=== PATIENT | male | born 1980 | race Caucasian/White ===

== ENCOUNTER 2016-09-29 00:19 | Inpatient (IN) | payer OTHER ==
[~2016-09-29] VITALS: Ht 180.3 cm; Wt 68.0 kg
[2016-09-29] VITALS (10 sets, daily range): BP systolic 96–115; BP diastolic 52–65; PULSE 98–115; RESP 16–24; TEMP 95–99.1; O2SAT 91–100
[~2016-09-29 00:19] MED LIST: DIPHTH/TETANUS/ACEL PERTUSSIS (BOOSTER) 0.5 ML VIAL/PFS IM ONE; PROPOFOL 1000 MG/100 ML INJ 100 ML ONE; ceFAZolin 2 GM PREMIX 50 ML ONE
[2016-09-29] MEDS ORDERED: ceFAZolin 2 GM PREMIX 50 ML IV STA (00:30)
[2016-09-29] MEDS ORDERED: ONDANSETRON HCL 4 MG/2 ML VIAL IV ONE (00:30)
[2016-09-29] MEDS ORDERED: DIPHTH/TETANUS/ACEL PERTUSSIS (BOOSTER) 0.5 ML VIAL/PFS IM ONE (00:39)
[2016-09-29] MEDS ORDERED: SODIUM CHLORIDE FLUSH PRN IV FLUSH (00:45)
[2016-09-29 00:52] LABS: AUTOMATED NEUTROPHIL # 2.8 TH/MM3 (1.8-7.7); BASOPHIL # 0.2 TH/MM3 (0-0.2); BASOPHIL % 2.7 % (0.0-2.0); EOSINOPHIL # 0.1 TH/MM3 (0-0.4); EOSINOPHIL % 0.9 % (0.0-4.0); HEMATOCRIT 33.8 % (39.0-51.0); HEMO FLAGS DIFF FINAL; LYMPH % 54.4 % (9.0-44.0); LYMPHOCYTE # 3.7 TH/MM3 (1.0-4.8); MEAN CORPUSCULAR HEMOGLOBIN 30.6 PG (27.0-34.0); MEAN CORPUSCULAR HGB CONC 32.2 % (32.0-36.0); PLATELET COUNT 156 TH/MM3 (150-450); RED BLOOD COUNT 3.56 MIL/MM3 (4.50-5.90); RED CELL DISTRIBUTION WIDTH 13.8 % (11.6-17.2); WHITE BLOOD COUNT 6.8 TH/MM3 (4.0-11.0)
[2016-09-29 00:53] LABS: I-STAT POTASSIUM 3.7 MMOL/L (3.5-4.9)
[2016-09-29 01:04] LABS: APTT (PATIENT) 51.8 SEC (24.3-30.1); INTERNATIONAL NORMALIZED RATIO 1.3 RATIO; PROTHROMBIN TIME - PATIENT 14.7 SEC (9.8-11.6)
[2016-09-29] MEDS ORDERED: ceFAZolin INJ 1,000 MG VIAL IV ONE (01:07)
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
--- NOTE | 2016-09-29 01:46 | RADRPT ---
EXAM DATE/TIME: 09/29/2016 00:13 [facility] COMPARISON: CHEST SINGLE AP, September 29, 2016, 0:13. INDICATIONS : Left sided chest tube placement. MEDICAL HISTORY : None. SURGICAL HISTORY : None. ENCOUNTER: Subsequent ACUITY: 1 day PAIN SCORE: Non-responsive. LOCATION: Left chest FINDINGS: A single view of the chest demonstrates the lungs to be symmetrically aerated without evidence of mas s, infiltrate or effusion. Left-sided chest tube placement. No pneumothorax. The cardiomediastinal co ntours are unremarkable. Osseous structures are intact. CONCLUSION: Left-sided chest tube without pneumothorax. Heriberto Diez MD on September 29, 2016 at 1:43 Board Certified Radiologist. This report was verified electronically.
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
[2016-09-29 02:13] LABS: BLOOD GAS BASE EXCESS -14.9 mmol/L (-2-2); BLOOD GAS CARBOXYHEMOGLOBIN 2.3 % (0-4); BLOOD GAS HCO3 14 mmol/L (22-26); BLOOD GAS METHEMOGLOBIN 1.2 % (0-2); BLOOD GAS O2 HGB SATURATION 96 % (90-100); BLOOD GAS PCO2 58 mmHg (38-42); BLOOD GAS PO2 389 mmHg (61-120); BLOOD GAS TOTAL HGB 8.9 G/DL (12.0-16.0); TEMP CORR TO 98.6
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
[2016-09-29 02:17] LABS: CRITICAL VALUE YES; FIO2 90 %; OXYGEN DEVICE OR
[2016-09-29 02:18] LABS: STAT YES; VENT SETTINGS OR
[2016-09-29] MEDS ORDERED: MISCELLANEOUS NURSING INFORMATION XX SCH ×2 (02:30→07:30)
[2016-09-29] MEDS ORDERED: CHLORHEXIDINE GLUCONATE 2 % 1 PACK (2 CLOTHS) TOP PRN (02:30)
[2016-09-29] MEDS ORDERED: ETOMIDATE 20 MG/10 ML VIAL ONE (02:33)
[2016-09-29] MEDS ORDERED: fentaNYL DRIP 250 ML IV SCH (02:45)
[2016-09-29] MEDS ORDERED: PROPOFOL 1000 MG/100 ML INJ 100 ML IV SCH (02:45)
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
--- NOTE | 2016-09-29 03:08 | PD.OP ---
Operative Report Blunt chest trauma, pneumothorax left Postoperative Diagnosis: Same Procedure: Chest tube thoracostomy left Surgeon: Veronica Bowers Turning And Beading Machine Operator(s): none Operation and Findings: A 36-year-old male with traumatic shock left blunt chest trauma suspicious for left hemopneumothorax, proceeded with chest tube thoracostomy. Technique Patient's left chest sterilely prepped and draped using the usual technique. Midaxillary line 5 ICR incision was performed, dissected to the superior aspect of the rib.Pleural space entered and a 32 Mongolian chest tube inserted-secured to skin with 0 silk. Chest x-ray shows good position Veronica Bowers MD Sep 29, 2016 03:08
[2016-09-29] MEDS ORDERED: IOHEXOL 350 MG/ML 10 ML VIAL (for RAD DIAG) IV ONE (03:31)
[2016-09-29] MEDS: CHLORHEXIDINE GLUCONATE 2 % 1 PACK (2 CLOTHS) TOP SCH (04:00)
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
[2016-09-29] MEDS ORDERED: TRANEXAMIC ACID INJ 1,000 MG/10 ML AMP ONE ×2 (04:09)
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
--- NOTE | 2016-09-29 04:10 | PD.OP ---
Operative Report Traumatic shock,r/o intra-abdominal bleeding, rule out aortic injury Postoperative Diagnosis: Traumatic shock, stomach injury, liver injury,hematoma of the small bowel mesentery Procedure: Exploratory laparotomy with damage control, open abdomen wound VAC, repair of liver injury, stomach injury repair Anesthesia: Gen. Surgeon: Veronica Bowers Pipe Turner(s): Film Printer OR Operation and Findings: This 36-year-old male presented with traumatic shock. To the OR on emergent basis for hypotension for exploratory laparotomy -if remain unstable for thoracotomy,repair of aortic injury. Technique Patient was brought into the operating room and identified as the patient. After general anesthesia patient's abdomen was sterilely prepped and draped using the usual technique. Procedure started was midline incision-abdomen was entered. Upon entering of the abdomen large spillage of stomach content was seen. There is a large injury of the stomach at the antrum 6 cm through and through. This was controlled with several Babcocks. Further exploration shows left liver multiple superficial injuries and and a deeper injury the size of 6 cm with active bleeding. The superficial injuries were controlled with high level cautery. The deeper injury was controlled with Surgicel packing and chromic liver sutures. Here 2 x packing with Nu-Knit applied. There is a hematoma at the root of the transverse colon mesentery. Visceral reflection from the left shows no SMA or SMV bleeding -also aorta is intact. Spleen shows no injury. Right colon, left colon,transverse colon no injury as well. Small bowel was run from ligament of Treitz to the ileocecal wall. There is mesenteric hematoma not expanding and small bowel is intact. Total of 4 packs were left one left upper quadrant 3 in the right upper quadrant. Upon entering of the lesser sac there is wall deserosalization of about 7 cm of posterior stomach wall. This was closed with multiple 3 GI silk. Pancreas appears swollen but no obvious injury. The stomach injury was closed with the TA stapler.Abdomen was irrigated with normal saline. Wound VAC dressing was applied. Patient was resuscitated with anesthesia according to massive transfusion protocol. Cardiothoracic surgeon has been consulted for a widened mediastinum. He assessed the patient-and it was performed by the anesthesiologist, CT output about 600cc. Postoperatively patient will be brought to the CAT scan. Resuscitation will be continued in the ICU. EBL 800 cc Veronica Bowers MD Sep 29, 2016 04:10
[2016-09-29 04:21] LABS: AUTOMATED NEUTROPHIL # 8.8 TH/MM3 (1.8-7.7); BASOPHIL % 0.2 % (0.0-2.0); EOSINOPHIL # 0.1 TH/MM3 (0-0.4); EOSINOPHIL % 0.7 % (0.0-4.0); LYMPH % 15.2 % (9.0-44.0); LYMPHOCYTE # 1.6 TH/MM3 (1.0-4.8); MEAN CELL VOLUME 86.9 FL (80.0-100.0); MEAN CORPUSCULAR HEMOGLOBIN 28.6 PG (27.0-34.0); MEAN CORPUSCULAR HGB CONC 32.9 % (32.0-36.0); MONO % 1.8 % (0.0-8.0); NEUT % 82.1 % (16.0-70.0); PLATELET COUNT 93 TH/MM3 (150-450); RED BLOOD COUNT 4.49 MIL/MM3 (4.50-5.90); RED CELL DISTRIBUTION WIDTH 14.3 % (11.6-17.2); WHITE BLOOD COUNT 10.7 TH/MM3 (4.0-11.0)
[2016-09-29 04:23] LABS: HEMO FLAGS AUTO DIFF
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
[2016-09-29 04:31] LABS: INTERNATIONAL NORMALIZED RATIO 1.4 RATIO; PROTHROMBIN TIME - PATIENT 15.9 SEC (9.8-11.6)
[2016-09-29 04:40] LABS: BLOOD GAS BASE EXCESS -5.6 mmol/L (-2-2); BLOOD GAS CARBOXYHEMOGLOBIN 1.1 % (0-4); BLOOD GAS HCO3 23 mmol/L (22-26); BLOOD GAS METHEMOGLOBIN 0.5 % (0-2); BLOOD GAS O2 HGB SATURATION 95 % (90-100); BLOOD GAS OXYGEN CONTENT 15.6 Vol % (12.0-20.0); BLOOD GAS PCO2 76 mmHg (38-42); BLOOD GAS PO2 97 mmHG (61-120); BLOOD GAS TOTAL HGB 11.6 G/DL (12.0-16.0); TEMP CORR TO 98.6
[2016-09-29 04:41] LABS: FIO2 100 %; OXYGEN DEVICE VENTILATOR; STAT YES; VENT SETTINGS 12/500/6PEEP
[2016-09-29 04:52] LABS: BACTERIA, URINE RARE /hpf; BLOOD, URINE LARGE (NEG); GLUCOSE,URINE 150 mg/dL (NEG); HYALINE CAST, URINE 2 /lpf (RARE); KETONE, URINE NEG (NEG); MUCUS URINE FEW /lpf (OCC); NITRITE,URINE NEG (NEG); RENAL EPITHELIAL CELLS <1 /hpf; SQUAMOUS EPITHELIAL CELL URINE 1 /hpf (0-5); URINE COLOR YELLOW (YELLW/STRAW)
[2016-09-29 04:53] LABS: COMMENT (UR) CULTURE INDICATED; CULTURE IF INDICATED CULTURE INDICATED
[2016-09-29 04:56] LABS: BANDS 16 % (0-6); BASOPHILS 1 % (0-2); EOSINOPHILS 1 % (0-4); METAMYELOCYTES 6 % (0-1); MYELOCYTES 1 % (0-0); NEUTROPHIL # MANUAL DIFF 8.6 TH/MM3 (1.8-7.7); PLATELET ESTIMATE SMEAR LOW (NORMAL); PLATELET MORPHOLOGY NORMAL (NORMAL); POLYS (SEG NEUTROPHILS) 57 % (16-70); SCAN/DIFF FINAL DIFF MANUAL; WBC DIFF SAMPLE 100
[2016-09-29 04:57] LABS: BURR CELLS 1+ (NORMAL)
[2016-09-29 04:57] LABS: AMPHETAMINE, URINE NEG (NEG); BARBITURATES, URINE NEG (NEG); COCAINE, URINE NEG (NEG)
--- NOTE | 2016-09-29 05:08 | HHI.PR ---
Subjective Remarks Traumatic shock,multitrauma,aortic injury-patient intubated ongoing resuscitation-needs stenting as medical necessity-cannot sign consent due to clinical condition Objective Vital Signs Date Time Temp Pulse Resp B/P Pulse Ox O2 Delivery O2 Flow Rate FiO2 09/29/16 04:04 100 100 Result Diagram: 09/29/16 0359 Assessment and Plan Assessment and Plan Traumatic shock blunt chest trauma with widened mediastinum-highly suspicious for blunt aortic injury hypotension,ST Orotracheally intubated, MTP started, negative fast exam but highly suspicious for intra-abdominal bleeding immediately brought to the OR for exploration of the abdomen Chest tube output about 300 cc Discussed with the thoracic surgeon hvac controls technician- Veronica Bowers MD Sep 29, 2016 05:08
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
[2016-09-29 06:01] LABS: BICARBONATE 27.9 MEQ/L (21.0-32.0); POTASSIUM 3.2 MEQ/L (3.5-5.1)
[2016-09-29 06:32] LABS: CALCIUM-PROTEIN CORRECTED 7.9 MG/DL (8.5-10.1)
[2016-09-29] MEDS ORDERED: PROTAMINE SULFATE 50 MG/5 ML VIAL ONE (07:00)
[2016-09-29] MEDS ORDERED: MIDAZOLAM HCL 5 MG/5 ML VIAL ONE (07:14)
[2016-09-29] MEDS ORDERED: MAGNESIUM OXIDE 400 MG TAB PO PRN (07:30)
[2016-09-29] MEDS ORDERED: POTASSIUM PHOSPHATE INJ 30 MMOL in SODIUM CHLOR 0.9% 250 ML INJ 250 ML IV PRN (07:30)
[2016-09-29] MEDS ORDERED: POTASSIUM CHLORIDE 25 MEQ EFFERVESCENT TAB PO PRN (07:30)
[2016-09-29] MEDS ORDERED: SODIUM CHLORIDE 0.9% FLUSH 5 ML FLUSH IV FLUSH PRN (07:30)
[2016-09-29] MEDS ORDERED: POTASSIUM PHOSPHATE MONOBASIC 500 MG TAB PO/TUBE PRN (07:30)
[2016-09-29] MEDS ORDERED: ONDANSETRON HCL 4 MG/2 ML VIAL IV PRN (07:30)
[2016-09-29] MEDS ORDERED: POTASSIUM PHOSPHATE MONOBASIC 500 MG TAB PO PRN (07:30)
[2016-09-29] MEDS ORDERED: SODIUM PHOSPHATE INJ 30 MMOL in SODIUM CHLOR 0.9% 250 ML INJ 240 ML IV PRN (07:30)
[2016-09-29] MEDS ORDERED: MAGNESIUM SULFATE INJ 2 GM in SODIUM CHLORIDE 0.9% INJ 96 ML IV PRN (07:30)
[2016-09-29] MEDS ORDERED: MAGNESIUM SULFATE INJ 4 GM in SODIUM CHLORIDE 0.9% INJ 92 ML IV PRN (07:30)
[2016-09-29] MEDS ORDERED: POTASSIUM CHLOR 20 MEQ PREMIX 100 ML IV PRN ×2 (07:30)
[2016-09-29] MEDS ORDERED: MIDAZOLAM HCL 2 MG/2 ML VIAL ONE (07:44)
[2016-09-29 07:45] LABS: BLOOD GAS BASE EXCESS 1.6 mmol/L (-2-2); BLOOD GAS CARBOXYHEMOGLOBIN 0.9 % (0-4); BLOOD GAS HCO3 28 mmol/L (22-26); BLOOD GAS METHEMOGLOBIN 0.7 % (0-2); BLOOD GAS O2 HGB SATURATION 98 % (90-100); BLOOD GAS OXYGEN CONTENT 12.6 Vol % (12.0-20.0); BLOOD GAS PCO2 65 mmHg (38-42); BLOOD GAS PO2 221 mmHg (61-120); BLOOD GAS TOTAL HGB 8.8 G/DL (12.0-16.0); TEMP CORR TO 98.6
[2016-09-29] MEDS ORDERED: VASOPRESSIN INJ 20 UNITS/ML VIAL ONE (07:45)
[2016-09-29] MEDS ORDERED: fentaNYL CITRATE 250 MCG/5 ML AMP ONE (07:45)
[2016-09-29 07:46] LABS: CRITICAL VALUE YES; FIO2 100 %; OXYGEN DEVICE VENT
[2016-09-29 07:47] LABS: DRAW SITE ALINE; STAT NO
[2016-09-29] MEDS ORDERED: IODIXANOL 320 MG/ML 50 ML VIAL (for RAD SPEC) I-ARTERIAL ONE (07:49)
--- NOTE | 2016-09-29 07:58 | PD.RAD ---
Post Procedure Progress Note Pre Procedure Diagnosis: (1) Traumatic thoracic aortic rupture (2) Hemopneumothorax on left (3) Traumatic hemorrhagic shock Post Procedure Diagnosis: (1) Traumatic thoracic aortic rupture (2) Hemopneumothorax on left (3) Traumatic hemorrhagic shock Procedure Date: Sep 29, 2016 Supervising Radiologist: Jax Chase Proceduralist/Assist: Cielo Finch, RT(R)(CV), Karen Swann RT(R)() Anesthesia: General, Local Plan of Activity Patient to Unit: Critical Care Patient Condition: Critical See PACS Report for procedural detail/treatment Vascular-Arterial Procedure Procedure 1 Procedure Site: Thoracic Procedure(s): Stent Placement Access Access Site(s): Right Femoral Artery, Left Femoral Artery Closure Site(s): Right vascular closure device Sheath(s) Remaining: Left Femoral Artery Findings: Contained rupture of proximal descending thoracic aorta with pseudoaneurysm formation. Patent great vessels. Treament Area: Thoracic aortic rupture repaired with Medtronic [place] stent graft. Graft place from Lt Subclavian A to mid descending thoracic aorta. Rupture completely excluded with good flow established. Pt stable post procedure. Additional Detail: Lt femoral sheath left in place as arterial line for management. Jax Chase MD Sep 29, 2016 07:58
[2016-09-29] MEDS ORDERED: CHLORHEXIDINE 0.12% (ORAL KIT) 15 ML CUP MT SCH (08:00)
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
[2016-09-29] MEDS ORDERED: NOREPINEPHRINE-DEXTROSE DRIP 250 ML IV ONE (08:34)
[2016-09-29] MEDS ORDERED: SODIUM CHLORIDE 0.9% FLUSH 5 ML FLUSH IV FLUSH SCH (09:00)
[2016-09-29] MEDS: SODIUM CHLORIDE 0.9% FLUSH 10 ML FLUSH IV FLUSH SCH ×2 (09:00→21:00)
[2016-09-29] MEDS ORDERED: SODIUM CHLORIDE FLUSH BID IV FLUSH SCH (09:00)
[2016-09-29] MEDS: DOCUSATE SODIUM 100 MG CAP PO SCH ×2 (09:00→19:56)
[2016-09-29] MEDS: PANTOPRAZOLE SODIUM 40 MG VIAL IV SCH (09:00)
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
[2016-09-29] MEDS: RESP: ALBUTEROL 2.5 MG/IPRATROPIUM 0.5 MG NEB (SCH) INH ×3 (09:43→21:18)
[2016-09-29] MEDS ORDERED: HEPARIN-NS/PF INJ 500 ML IART SCH (10:00)
[2016-09-29] MEDS ORDERED: HEPARIN INJ 1,000 UNITS in SODIUM CHLORID 0.9% 500 ML INJ 500 ML IV SCH (10:01)
[2016-09-29] MEDS ORDERED: PHENYLEPH/NS 1000 MCG/10 ML SYR IV ONE ×2 (10:36→12:24)
[2016-09-29] MEDS ORDERED: SODIUM BICARBONATE 8.4% INJ 50 MEQ/50 ML SYR IV ONE ×2 (10:36→12:24)
[2016-09-29] MEDS ORDERED: LACTATED RINGER'S 1,000 ML BAG IV ONE (10:36)
[2016-09-29] MEDS ORDERED: SODIUM CHLOR 0.9% 1000 ML BAG IV ONE (10:36)
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
[2016-09-29 11:32] LABS: BLOOD GAS BASE EXCESS 3.6 mmol/L (-2-2); BLOOD GAS HCO3 29 mmol/L (22-26); BLOOD GAS METHEMOGLOBIN 0.8 % (0-2); BLOOD GAS O2 HGB SATURATION 98 % (90-100); BLOOD GAS OXYGEN CONTENT 16.5 Vol % (12.0-20.0); BLOOD GAS PCO2 56 mmHg (38-42); BLOOD GAS PO2 187 mmHg (61-120); BLOOD GAS TOTAL HGB 11.8 G/DL (12.0-16.0); TEMP CORR TO 98.6
[2016-09-29 11:33] LABS: CRITICAL VALUE YES; OXYGEN DEVICE VENT
[2016-09-29 11:34] LABS: DRAW SITE ALINE; FIO2 100 %; STAT NO; VENT SETTINGS PRVC/18/550/10/.9IT
[2016-09-29] MEDS: PIPERACIL-TAZO 3.375 GM PREMIX 50 ML IV SCH ×2 (11:56→18:00)
[2016-09-29] MEDS: PROPOFOL 1000 MG/100 ML INJ 100 ML IV SCH ×3 (11:57→22:30)
[2016-09-29] MEDS ORDERED: CALCIUM CHLORIDE 10% SOLN 1 GRAM/10 ML SYR IV ONE (12:24)
[2016-09-29] MEDS ORDERED: NORMOSOL R IV ONE (12:24)
[2016-09-29] MEDS: SODIUM CHLOR 0.9% 1000 ML INJ 1,000 ML IV SCH ×2 (12:29→22:29)
[2016-09-29] MEDS ORDERED: LIDOCAINE 1%/EPINEPHrine 1:100,000 SOLN 20 ML VIAL INFIL ONE (15:00)
[2016-09-29] MEDS ORDERED: LIDOCAINE HCL 1% 50 ML VIAL ONE (15:00)
[2016-09-29 15:35] LABS: HEMATOCRIT 35.1 % (39.0-51.0); MEAN CELL VOLUME 83.9 FL (80.0-100.0); MEAN CORPUSCULAR HEMOGLOBIN 29.5 PG (27.0-34.0); MEAN CORPUSCULAR HGB CONC 35.1 % (32.0-36.0); PLATELET COUNT 136 TH/MM3 (150-450); RED BLOOD COUNT 4.19 MIL/MM3 (4.50-5.90); RED CELL DISTRIBUTION WIDTH 15.1 % (11.6-17.2); REVIEW FLAG FINAL; WHITE BLOOD COUNT 6.9 TH/MM3 (4.0-11.0)
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
--- NOTE | 2016-09-29 16:12 | PD.PROCEDR ---
Procedure Note Procedure The patient suffered a laceration to the back of his scalp that I was asked to repair. It is 9 cm in length vertically and the middle of the laceration extends horizontally to the right for 5 cm. Upon removal of his head dressing, it was noted that the laceration was all ready stapled, however the silvestre were most of the way out, and not approximating the wound. 7 silvestre were removed. After evaluating the area, the wound was copiously irrigated with normal saline. The area of the laceration was prepped with Betadine and sterilely draped. The laceration was infiltrated with 1% Lidocaine with Epinephrine. The wound was explored for foreign body, tendon injury, or neurovascular injury. The wound was then cleansed and irrigated a second time. Trying to maintain a sterile field and using a sterile staple gun, 10 silvestre total were placed to approximate the wound edges, both horizontally and vertically. The patient tolerated the procedure well and no complications occurred. A sterile 4x4 dressing was applied and the head was wrapped with Madai. Recommendation: Daily wound checks and staple removal in 7-10 days. LACERATION LOCATION: Back of his scalp. LENGTH: 9 cm vertical, and 5 cm horizontal NUMBER OF SILVESTRE: 10 silvestre total. procedure performed by DINING HOST -under my supervision-agree with above note Christine Lott Sep 29, 2016 16:12 Veronica Bowers MD Oct 03, 2016 11:45
[2016-09-29 17:01] LABS: BICARBONATE 30.4 MEQ/L (21.0-32.0); CALCIUM-PROTEIN CORRECTED 7.9 MG/DL (8.5-10.1); POTASSIUM 3.4 MEQ/L (3.5-5.1); TOTAL BILIRUBIN ADULT 0.5 MG/DL (0.2-1.0)
[2016-09-29] MEDS: fentaNYL DRIP 250 ML IV SCH (19:55)
[2016-09-29] MEDS: CHLORHEXIDINE 0.12% (ORAL KIT) 15 ML CUP MT SCH (19:55)
[2016-09-29] MEDS: MIDAZOLAM 100 MG/ML INJ 100 ML IV SCH (22:29)
[2016-09-30] VITALS (15 sets, daily range): BP systolic 97–127; BP diastolic 52–64; PULSE 88–114; RESP 24; TEMP 98.5–99.4; O2SAT 96–100
[2016-09-30] MEDS: PIPERACIL-TAZO 3.375 GM PREMIX 50 ML IV SCH ×4 (01:09→18:30)
[2016-09-30 02:50] LABS: AUTOMATED NEUTROPHIL # 9.5 TH/MM3 (1.8-7.7); BASOPHIL % 0.3 % (0.0-2.0); EOSINOPHIL # 0.1 TH/MM3 (0-0.4); EOSINOPHIL % 0.6 % (0.0-4.0); HEMATOCRIT 33.3 % (39.0-51.0); HEMO FLAGS DIFF FINAL; LYMPH % 6.9 % (9.0-44.0); LYMPHOCYTE # 0.7 TH/MM3 (1.0-4.8); MEAN CELL VOLUME 85.1 FL (80.0-100.0); MEAN CORPUSCULAR HEMOGLOBIN 28.6 PG (27.0-34.0); MEAN CORPUSCULAR HGB CONC 33.7 % (32.0-36.0); MONO % 3.5 % (0.0-8.0); NEUT % 88.7 % (16.0-70.0); PLATELET COUNT 111 TH/MM3 (150-450); RED BLOOD COUNT 3.92 MIL/MM3 (4.50-5.90); RED CELL DISTRIBUTION WIDTH 15.8 % (11.6-17.2); WHITE BLOOD COUNT 10.7 TH/MM3 (4.0-11.0)
[2016-09-30 02:57] LABS: INTERNATIONAL NORMALIZED RATIO 1.2 RATIO; PROTHROMBIN TIME - PATIENT 12.9 SEC (9.8-11.6)
[2016-09-30 03:06] LABS: BICARBONATE 29.4 MEQ/L (21.0-32.0); MAGNESIUM 1.5 MG/DL (1.5-2.5); POTASSIUM 3.5 MEQ/L (3.5-5.1); TOTAL BILIRUBIN ADULT 0.6 MG/DL (0.2-1.0)
[2016-09-30 03:09] LABS: CALCIUM-PROTEIN CORRECTED 7.3 MG/DL (8.5-10.1)
[2016-09-30] MEDS ORDERED: CALCIUM GLUCONATE 10% 1 GM/10 ML VIAL ONE (03:15)
[2016-09-30] MEDS ORDERED: LACTATED RINGER'S 1000 ML INJ 1,000 ML IV ONE ×2 (03:15→13:47)
[2016-09-30] MEDS: MAGNESIUM SULFATE 1 GM PREMIX 100 ML IV SCH ×2 (03:17→04:56)
[2016-09-30] MEDS: PROPOFOL 1000 MG/100 ML INJ 100 ML IV SCH (03:18)
[2016-09-30] MEDS: CHLORHEXIDINE GLUCONATE 2 % 1 PACK (2 CLOTHS) TOP SCH (03:19)
[2016-09-30] MEDS: RESP: ALBUTEROL 2.5 MG/IPRATROPIUM 0.5 MG NEB (SCH) INH ×4 (03:27→20:37)
[2016-09-30] MEDS ORDERED: CALCIUM GLUCONATE INJ 1 GM in SODIUM CHLORIDE 0.9% INJ 100 ML IV ONE (04:00)
[2016-09-30] MEDS ORDERED: CHLORHEXIDINE GLUCONATE 2 % 1 PACK (2 CLOTHS) TOP SCH (04:00)
[2016-09-30] MEDS ORDERED: ALBUMIN HUMAN 5% 25 GM/500 ML BOTTLE IV SCH (05:00)
[2016-09-30 05:18] LABS: BLOOD GAS BASE EXCESS -0.4 mmol/L (-2-2); BLOOD GAS HCO3 24 mmol/L (22-26); BLOOD GAS O2 HGB SATURATION 94 % (90-100); BLOOD GAS OXYGEN CONTENT 12.7 Vol % (12.0-20.0); BLOOD GAS PCO2 39 mmHg (38-42); BLOOD GAS PO2 82 mmHg (61-120); BLOOD GAS TOTAL HGB 9.5 G/DL (12.0-16.0); TEMP CORR TO 98.6
[2016-09-30 05:20] LABS: CRITICAL VALUE NO; OXYGEN DEVICE VENTILATOR
[2016-09-30 05:21] LABS: FIO2 40 %
[2016-09-30 05:22] LABS: DRAW SITE ART LINE; STAT NO
--- NOTE | 2016-09-30 07:04 | RADRPT ---
EXAM DATE/TIME: 09/30/2016 06:18 [facility] COMPARISON: CHEST SINGLE AP, September 29, 2016, 0:13. INDICATIONS : Shortness of breath. MEDICAL HISTORY : None. SURGICAL HISTORY : None. ENCOUNTER: Subsequent ACUITY: 1 day PAIN SCORE: Non-responsive. LOCATION: chest FINDINGS: The support devices are in place. There is a left-sided chest tube in place. There is no pneumothorax . The NG tube tip appears to be in the distal esophagus. There is some increased parenchymal density in the left retrocardiac area. There is some changes in the right lower lung. There is an en dovascular stent in place. CONCLUSION: 1. No evidence of pneumothorax. 2. The tip of the NG tube appears to be in the distal esophagus. Recommend advancing approximately 10 cm. 3. Bibasilar infiltrates. Kelton Singh MD on September 30, 2016 at 7:01 Board Certified Radiologist. This report was verified electronically.
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
[2016-09-30] MEDS: CHLORHEXIDINE 0.12% (ORAL KIT) 15 ML CUP MT SCH ×2 (08:00→20:13)
[2016-09-30] MEDS: SODIUM CHLOR 0.9% 1000 ML INJ 1,000 ML IV SCH ×2 (08:29→18:29)
[2016-09-30] MEDS: PANTOPRAZOLE SODIUM 40 MG VIAL IV SCH (08:44)
[2016-09-30] MEDS: DOCUSATE SODIUM 100 MG CAP PO SCH ×2 (08:57→20:13)
[2016-09-30] MEDS: SODIUM CHLORIDE 0.9% FLUSH 10 ML FLUSH IV FLUSH SCH ×2 (08:57→20:13)
[2016-09-30] MEDS ORDERED: NOREPINEPHRINE-DEXTROSE DRIP 250 ML IV ONE (10:21)
--- NOTE | 2016-09-30 10:39 | PD.RAD ---
Post Procedure Progress Note Pre Procedure Diagnosis: (1) Traumatic thoracic aortic rupture Post Procedure Diagnosis: (1) Traumatic thoracic aortic rupture Procedure Date: Sep 30, 2016 Supervising Radiologist: Jax Chase Proceduralist/Assist: RT Bo(R)() Plan of Activity Patient to Unit: Critical Care Patient Condition: Critical See PACS Report for procedural detail/treatment Central Venous Access Device Procedure 1 Left Femoral Arterial Line Removal single lumen Jax Chase MD Sep 30, 2016 10:39
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
[2016-09-30] MEDS ORDERED: DIATRIZOATE MEG 30% 300 ML BOTTLE (for RAD DIAG) I-VESICULR ONE (11:34)
--- NOTE | 2016-09-30 12:23 | RADRPT ---
EXAM DATE/TIME: 09/30/2016 10:55 [facility] COMPARISON: CHEST SINGLE AP, September 29, 2016, 0:13. CHEST SINGLE AP, September 29, 2016, 0:13. CT ABDOMEN & PELVIS W CONTRAST, September 29, 2016, 3:25. INDICATIONS : Pelvic fracture; evaluate for bladder injury. ORAL CONTRAST: No oral contrast ingested. RADIATION DOSE: 12.37 CTDIvol (mGy) MEDICAL HISTORY : Non-responsive. SURGICAL HISTORY : Non-responsive. ENCOUNTER: Initial ACUITY: 2 days PAIN SCALE: Non-responsive LOCATION: pelvis TECHNIQUE: Volumetric scanning of the pelvis was performed. Using automated exposure control and adjustment of the mA and/or kV according to patient size, radiation dose was kept as low as reasonably achievable t o obtain optimal diagnostic quality images. FINDINGS: BOWEL/MESENTERY: The visualized small and large bowel demonstrate no definite acute finding. There is a persistent ope n abdominal wound through which the small bowel extends. There is a small amount of free intraperiton eal air. Surgical sponge remains present in the left midabdomen. BLADDER: There is a Purdy catheter in the urinary bladder. Cysto-Conray was in jacket into the Purdy catheter and distends the urinary bladder. There are no findings to indicate intraperitoneal or extraperitonea l bladder injury/rupture. RETROPERITONEUM: There is no aneurysm or lymphadenopathy. There are extensive retroperitoneal blood products in the pr esacral space and in the extraperitoneal planes in the pelvis. REPRODUCTIVE: Within normal limits. INGUINAL: There is edema in the left inguinal region. Right femoral venous line is present. MUSCULOSKELETAL: There are comminuted fractures of the left superior and inferior pubic rami. Additionally, there is m ild widening of the left sacroiliac joint with nondisplaced fracture of the left posterior iliac bone extending into the SI joint and nondisplaced fracture of the left anterior iliac bone along the maggie c crest. CONCLUSION: 1. The urinary bladder is intact without findings to indicate intraperitoneal or extraperitoneal rupt ure. 2. Stable left pelvic fractures with widening of the left sacroiliac joint, as above. There are exten sive extraperitoneal blood products in the pelvis likely related to these fractures. 3. Open wound remains present anteriorly through which small bowel extends. There is a surgical spong e in the left midabdomen. Alejandro Nair MD on September 30, 2016 at 12:14 Board Certified Radiologist. This report was verified electronically.
[2016-09-30] MEDS ORDERED: MIDAZOLAM HCL 2 MG/2 ML VIAL ONE (14:27)
[2016-09-30] MEDS ORDERED: fentaNYL CITRATE 250 MCG/5 ML AMP ONE (14:27)
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
--- NOTE | 2016-09-30 17:20 | RADRPT ---
EXAM DATE/TIME: 09/30/2016 17:16 [facility] COMPARISON: CT PELVIS W/O CONTRAST, September 30, 2016, 10:55. INDICATIONS : Evaluate for foreign body. Bad instrument count. MEDICAL HISTORY : None. SURGICAL HISTORY : None. ENCOUNTER: Subsequent ACUITY: 1 day PAIN SCORE: Non-responsive. LOCATION: Abdomen FINDINGS: 3 supine frontal views of the abdomen and pelvis were obtained in the operating room due to incorrect instrument count. The sponge present on the prior CT is no longer visualized. No unexpected radiopaq ue foreign body is seen. NG tube is present within the distal esophagus and left chest tube is presen t. Some type of tubing overlies the left midabdomen. There is a right femoral line present. Purdy cat heter is present. There are left iliac and pubic bone fractures. CONCLUSION: No unexpected radiopaque foreign body is seen. These findings were telephoned to the operating room. Alejandro Nair MD on September 30, 2016 at 17:16 Board Certified Radiologist. This report was verified electronically.
--- NOTE | 2016-09-30 18:03 | RADRPT ---
EXAM DATE/TIME: 09/30/2016 17:16 [facility] COMPARISON: No previous studies available for comparison. INDICATIONS : Evaluate for foreign body. Bad instrument count. MEDICAL HISTORY : None. SURGICAL HISTORY : None. ENCOUNTER: Subsequent ACUITY: 1 day PAIN SCORE: Non-responsive. LOCATION: Abdomen FINDINGS: A nasogastric tube does not quite reach the stomach. A surgical drain overlies the right upper quadra nt. A right femoral vascular sheath is present. I see no retained surgical instrument overlying the v isualized abdomen or pelvis. Pelvic fractures are again noted. Visualized bowel gas pattern is nonspe cific and benign. CONCLUSION: No evidence of retained surgical instrument. Alejandro Strickland MD on September 30, 2016 at 18:00 Board Certified Radiologist. This report was verified electronically.
[2016-09-30] MEDS: fentaNYL DRIP 250 ML IV SCH (18:30)
[2016-09-30] MEDS: MIDAZOLAM 100 MG/ML INJ 100 ML IV SCH (18:30)
--- NOTE | 2016-09-30 20:10 | PD.OP ---
Operative Report Multitrauma, aortic injury, liver injury, injury of the stomach, mesenteric hematoma, open abdomen Postoperative Diagnosis: Multitrauma, aortic injury, liver injury, injury of the stomach, mesenteric hematoma, open abdomen Procedure: Reopening of previous laparotomy, removal 3 laparotomy pads, irrigation of the abdomen, primary closure of the abdomen Surgeon: Veronica Bowers Environmental [employer] Program Director(s): RNANGEL Operation and Findings: 36-year-old male with the above-mentioned injuries. He underwent damage control laparotomy and stenting of the aorta. He now presents for washout removal of packs and possible closure of the abdomen. Technique: Patient was brought into the operating room and was identified as the patient. After general anesthesia patient's abdomen was sterilely prepped and draped using the usual technique. The abdomen dressing was removed abdomen was entered. Total of 3 packs were removed from the abdomen-2 on the right upper quadrant one on the left upper quadrant. There was a discrepancy between my operative report indicating at total of 4 laparotomy pads with 3 the right upper quadrant. A very through search of the entire abdomen was performed and no additional pads were found. Abdominal x-ray was performed which shows no additional laparotomy pads in the abdomen. Some minor bleeding from the anterior liver injuries -hemostasis was obtained with the Bovie cautery. The staple line of the stomach in the antrum is intact, the staple line was imbricated with 3-0 silk. Pancreas was surveyed in the lesser sac there is some minor spasification but no clear pancreatic injury. There was some bruising of the fatty tissue of the hepatic flexure, the hepatic flexure was taken down and the colon was exactly surveyed there is no injury. Also the duodenum was kocherized and shows a intact duodenum. The spleen, small bowel, right left transverse colon rectum are intact. The drainage in the pancreatic bed was retained, additional 10 BOLA drain was inserted in the right upper quadrant. Abdomen was copiously irrigated and suctioned dry. Proceeded to closure of the abdomen. Heavy Vicryl sutures were used for internal retentions. The fascia was closed with #1 looped PDS-without any tension. Wound VAC was applied to the skin level. Overall tolerated procedure well. Was transferred to the ICU in stable condition. Post closure x-ray also shows no foreign bodies retained. Veronica Bowers MD Sep 30, 2016 20:10
[2016-09-30] MEDS: ENOXAPARIN SODIUM 30 MG/0.3 ML SYRINGE SQ SCH (20:14)
[2016-10-01] VITALS (16 sets, daily range): BP systolic 111–140; BP diastolic 53–71; PULSE 88–119; RESP 24; TEMP 98.8–99; O2SAT 94–100
[2016-10-01] MEDS: PIPERACIL-TAZO 3.375 GM PREMIX 50 ML IV SCH ×5 (00:10→23:52)
[2016-10-01] MEDS: PROPOFOL 1000 MG/100 ML INJ 100 ML IV SCH ×3 (00:10→22:13)
[2016-10-01] MEDS: RESP: ALBUTEROL 2.5 MG/IPRATROPIUM 0.5 MG NEB (SCH) INH ×4 (03:44→20:38)
[2016-10-01] MEDS: CHLORHEXIDINE GLUCONATE 2 % 1 PACK (2 CLOTHS) TOP SCH (04:00)
[2016-10-01 04:01] LABS: AUTOMATED NEUTROPHIL # 9.6 TH/MM3 (1.8-7.7); BASOPHIL # 0.1 TH/MM3 (0-0.2); BASOPHIL % 0.7 % (0.0-2.0); EOSINOPHIL # 0.2 TH/MM3 (0-0.4); EOSINOPHIL % 2.1 % (0.0-4.0); HEMATOCRIT 29.7 % (39.0-51.0); LYMPH % 6.3 % (9.0-44.0); LYMPHOCYTE # 0.7 TH/MM3 (1.0-4.8); MEAN CELL VOLUME 85.1 FL (80.0-100.0); MEAN CORPUSCULAR HEMOGLOBIN 29.5 PG (27.0-34.0); MEAN CORPUSCULAR HGB CONC 34.7 % (32.0-36.0); MONO % 3.2 % (0.0-8.0); NEUT % 87.7 % (16.0-70.0); PLATELET COUNT 95 TH/MM3 (150-450); RED BLOOD COUNT 3.49 MIL/MM3 (4.50-5.90); RED CELL DISTRIBUTION WIDTH 15.3 % (11.6-17.2); WHITE BLOOD COUNT 10.9 TH/MM3 (4.0-11.0)
[2016-10-01 04:04] LABS: HEMO FLAGS AUTO DIFF
[2016-10-01] MEDS: SODIUM CHLOR 0.9% 1000 ML INJ 1,000 ML IV SCH ×3 (04:29→14:07)
[2016-10-01 04:48] LABS: BICARBONATE 27.8 MEQ/L (21.0-32.0); CALCIUM-PROTEIN CORRECTED 8.6 MG/DL (8.5-10.1); MAGNESIUM 2.2 MG/DL (1.5-2.5); POTASSIUM 3.5 MEQ/L (3.5-5.1)
[2016-10-01 04:49] LABS: BANDS 31 % (0-6); DOHLE BODIES PRESENT (NONE SEEN); EOSINOPHILS 2 % (0-4); NEUTROPHIL # MANUAL DIFF 9.7 TH/MM3 (1.8-7.7); PLATELET ESTIMATE SMEAR LOW (NORMAL); PLATELET MORPHOLOGY NORMAL (NORMAL); POLYS (SEG NEUTROPHILS) 58 % (16-70); SCAN/DIFF FINAL DIFF MANUAL; WBC DIFF SAMPLE 100
[2016-10-01] MEDS: fentaNYL DRIP 250 ML IV SCH ×3 (05:08→23:52)
[2016-10-01] MEDS: MIDAZOLAM 100 MG/ML INJ 100 ML IV SCH ×2 (05:08→23:52)
[2016-10-01 05:18] LABS: BLOOD GAS BASE EXCESS 1.5 mmol/L (-2-2); BLOOD GAS CARBOXYHEMOGLOBIN 1.4 % (0-4); BLOOD GAS HCO3 26 mmol/L (22-26); BLOOD GAS METHEMOGLOBIN 0.9 % (0-2); BLOOD GAS O2 HGB SATURATION 93 % (90-100); BLOOD GAS OXYGEN CONTENT 13.7 Vol % (12.0-20.0); BLOOD GAS PCO2 41 mmHg (38-42); BLOOD GAS PO2 77 mmHg (61-120); BLOOD GAS TOTAL HGB 10.4 G/DL (12.0-16.0); CRITICAL VALUE NO; OXYGEN DEVICE VENTILATOR; TEMP CORR TO 98.6; VENT SETTINGS PRVC/AC
[2016-10-01 05:19] LABS: DRAW SITE RT RADIAL; FIO2 40 %; NUMBER OF ARTERIAL PUNCTURES 1; STAT NO; ULNAR PULSE PRESENT
--- NOTE | 2016-10-01 06:30 | RADRPT ---
EXAM DATE/TIME: 10/01/2016 05:00 [facility] COMPARISON: CHEST SINGLE AP, September 30, 2016, 6:18. INDICATIONS : Shortness of breath, possible pulmonary disease. MEDICAL HISTORY : None. SURGICAL HISTORY : None. ENCOUNTER: Subsequent ACUITY: 3 days PAIN SCORE: Non-responsive. LOCATION: Bilateral chest FINDINGS: The cardiac silhouette is enlarged in transverse diameter. Support lines and tubes are in satisfactor y position. Thoracic stent graft is in place. There is bilateral lower lobe atelectasis versus pneumo tenzin. Moderate size bilateral pleural effusions are present right greater than left. CONCLUSION: 1. Cardiomegaly. 2. Bilateral lower lobe atelectasis versus pneumonia. There has been no significant change when desirae red to the prior exam. 3. There is no evidence of pneumothorax. Pablo Barker MD on October 01, 2016 at 6:27 Board Certified Radiologist. This report was verified electronically.
[2016-10-01] MEDS: SODIUM CHLORIDE 0.9% FLUSH 10 ML FLUSH IV FLUSH SCH ×2 (08:00→20:24)
[2016-10-01] MEDS: CHLORHEXIDINE 0.12% (ORAL KIT) 15 ML CUP MT SCH ×2 (08:00→20:25)
[2016-10-01] MEDS: DOCUSATE SODIUM 100 MG CAP PO SCH ×2 (08:00→20:24)
[2016-10-01] MEDS: ENOXAPARIN SODIUM 30 MG/0.3 ML SYRINGE SQ SCH ×2 (09:10→20:24)
[2016-10-01] MEDS: PANTOPRAZOLE SODIUM 40 MG VIAL IV SCH (09:11)
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
[2016-10-01 17:04] LABS: BLOOD GAS BASE EXCESS 0.6 mmol/L (-2-2); BLOOD GAS CARBOXYHEMOGLOBIN 1.4 % (0-4); BLOOD GAS HCO3 27 mmol/L (22-26); BLOOD GAS METHEMOGLOBIN 1.1 % (0-2); BLOOD GAS O2 HGB SATURATION 93 % (90-100); BLOOD GAS PCO2 60 mmHg (38-42); BLOOD GAS PO2 86 mmHg (61-120); BLOOD GAS TOTAL HGB 10.6 G/DL (12.0-16.0); CRITICAL VALUE YES; DRAW SITE RT RADIAL; FIO2 40 %; NUMBER OF ARTERIAL PUNCTURES 1; OXYGEN DEVICE VENTILATOR; STAT NO; TEMP CORR TO 98.6; ULNAR PULSE PRESENT; VENT SETTINGS PRVC 20/450/10 PEEP
[2016-10-02] VITALS (14 sets, daily range): BP systolic 100–182; BP diastolic 53–84; PULSE 71–102; RESP 17–20; TEMP 97.6–98.6; O2SAT 99–100
[2016-10-02] MEDS: SODIUM CHLOR 0.9% 1000 ML INJ 1,000 ML IV SCH ×3 (00:29→21:21)
[2016-10-02] MEDS: RESP: ALBUTEROL 2.5 MG/IPRATROPIUM 0.5 MG NEB (SCH) INH ×4 (03:53→20:10)
[2016-10-02] MEDS: CHLORHEXIDINE GLUCONATE 2 % 1 PACK (2 CLOTHS) TOP SCH (04:00)
[2016-10-02 04:14] LABS: AUTOMATED NEUTROPHIL # 8.2 TH/MM3 (1.8-7.7); BASOPHIL % 0.3 % (0.0-2.0); EOSINOPHIL # 0.5 TH/MM3 (0-0.4); EOSINOPHIL % 4.9 % (0.0-4.0); HEMATOCRIT 25.1 % (39.0-51.0); LYMPH % 6.7 % (9.0-44.0); LYMPHOCYTE # 0.7 TH/MM3 (1.0-4.8); MEAN CELL VOLUME 86.6 FL (80.0-100.0); MEAN CORPUSCULAR HEMOGLOBIN 29.2 PG (27.0-34.0); MEAN CORPUSCULAR HGB CONC 33.8 % (32.0-36.0); MONO % 4.5 % (0.0-8.0); NEUT % 83.6 % (16.0-70.0); PLATELET COUNT 82 TH/MM3 (150-450); RED CELL DISTRIBUTION WIDTH 15.1 % (11.6-17.2); WHITE BLOOD COUNT 9.8 TH/MM3 (4.0-11.0)
[2016-10-02 04:20] LABS: HEMO FLAGS AUTO DIFF
[2016-10-02 04:37] LABS: ALT (GPT) 211 U/L (12-78); ANION GAP 7 MEQ/L (5-15); AST (GOT) 238 U/L (15-37); BICARBONATE 26.6 MEQ/L (21.0-32.0); BLOOD UREA NITROGEN 18 MG/DL (7-18); CHLORIDE 114 MEQ/L (98-107); GLOMERULAR FILTRATION RATE 65 ML/MIN (>89); MAGNESIUM 2.4 MG/DL (1.5-2.5); POTASSIUM 3.3 MEQ/L (3.5-5.1); SODIUM (NA) 148 MEQ/L (136-145)
[2016-10-02 04:44] LABS: ALKALINE PHOSPHATASE 48 U/L (45-117); TOTAL BILIRUBIN ADULT 0.9 MG/DL (0.2-1.0)
[2016-10-02] MEDS: PROPOFOL 1000 MG/100 ML INJ 100 ML IV SCH (05:03)
[2016-10-02] MEDS: PIPERACIL-TAZO 3.375 GM PREMIX 50 ML IV SCH ×3 (05:03→18:26)
[2016-10-02] MEDS: POTASSIUM CHLOR 40 MEQ PREMIX 100 ML IV PRN (05:03)
[2016-10-02 05:45] LABS: BLOOD GAS BASE EXCESS 0.8 mmol/L (-2-2); BLOOD GAS CARBOXYHEMOGLOBIN 1.4 % (0-4); BLOOD GAS HCO3 25 mmol/L (22-26); BLOOD GAS METHEMOGLOBIN 0.7 % (0-2); BLOOD GAS O2 HGB SATURATION 96 % (90-100); BLOOD GAS OXYGEN CONTENT 16.1 Vol % (12.0-20.0); BLOOD GAS PCO2 44 mmHg (38-42); BLOOD GAS PO2 120 mmHg (61-120); BLOOD GAS TOTAL HGB 11.7 G/DL (12.0-16.0); CRITICAL VALUE NO; OXYGEN DEVICE VENTILATOR; TEMP CORR TO 98.6
[2016-10-02 05:46] LABS: DRAW SITE RT RADIAL; FIO2 40 %; NUMBER OF ARTERIAL PUNCTURES 1; STAT NO; ULNAR PULSE PRESENT; VENT SETTINGS PRVC/AC
--- NOTE | 2016-10-02 06:40 | RADRPT ---
EXAM DATE/TIME: 10/02/2016 05:20 [facility] COMPARISON: CHEST SINGLE AP, October 01, 2016, 5:00. INDICATIONS : Shortness of breath, possible pulmonary disease. MEDICAL HISTORY : None. SURGICAL HISTORY : None. ENCOUNTER: Subsequent ACUITY: 4 - 6 days PAIN SCORE: Non-responsive. LOCATION: Bilateral chest FINDINGS: The cardiac silhouette is enlarged in transverse diameter. Support lines and tubes are in satisfactor y position. There is bilateral lower lobe atelectasis versus pneumonia. A moderate size right sided e ffusion is present. CONCLUSION: 1. Bilateral lower lobe atelectasis versus pneumonia. Right effusion. There has been no significant c hange when compared to the prior exam. Pablo Barker MD on October 02, 2016 at 6:39 Board Certified Radiologist. This report was verified electronically.
[2016-10-02 07:58] LABS: BANDS 26 % (0-6); BASOPHILS 2 % (0-2); EOSINOPHILS 6 % (0-4); NEUTROPHIL # MANUAL DIFF 8.3 TH/MM3 (1.8-7.7); PLATELET ESTIMATE SMEAR LOW (NORMAL); PLATELET MORPHOLOGY NORMAL (NORMAL); POLYS (SEG NEUTROPHILS) 59 % (16-70); SCAN/DIFF FINAL DIFF MANUAL; WBC DIFF SAMPLE 100
[2016-10-02] MEDS: PANTOPRAZOLE SODIUM 40 MG VIAL IV SCH (10:23)
[2016-10-02] MEDS: ENOXAPARIN SODIUM 30 MG/0.3 ML SYRINGE SQ SCH ×2 (10:23→21:00)
[2016-10-02] MEDS: DOCUSATE SODIUM 100 MG CAP PO SCH ×2 (10:23→21:00)
[2016-10-02] MEDS: SODIUM CHLORIDE 0.9% FLUSH 10 ML FLUSH IV FLUSH SCH ×2 (10:24→21:21)
[2016-10-02] MEDS: CHLORHEXIDINE 0.12% (ORAL KIT) 15 ML CUP MT SCH ×2 (10:24→21:21)
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
[2016-10-02] MEDS ORDERED: SODIUM CHLORIDE 0.9% FLUSH 10 ML FLUSH IV FLUSH PRN (16:15)
--- NOTE | 2016-10-02 16:35 | RADRPT ---
EXAM DATE/TIME: 10/02/2016 16:12 [facility] COMPARISON: CHEST SINGLE AP, October 02, 2016, 5:20. INDICATIONS : Evaluate PICC line placement MEDICAL HISTORY : None. SURGICAL HISTORY : None. ENCOUNTER: Subsequent ACUITY: 4 - 6 days PAIN SCORE: Non-responsive. LOCATION: Bilateral chest FINDINGS: A single view of the chest demonstrates endotracheal tube in satisfactory position. NG enters stomach . Left chest tube with no pneumothorax. Right PICC line in superior vena cava. Bilateral airspace dis ease, right greater than left with pleural effusions. No pneumothorax. Findings similar to exam from earlier today. CONCLUSION: 1. Right PICC line placed with tip near cavoatrial junction. No pneumothorax. David Mcleod MD on October 02, 2016 at 16:32 Board Certified Radiologist. This report was verified electronically.
[2016-10-02] MEDS: fentaNYL DRIP 250 ML IV SCH (17:19)
[2016-10-03] VITALS (13 sets, daily range): BP systolic 139–162; BP diastolic 68–90; PULSE 88–97; RESP 16–18; TEMP 97.6–98.3; O2SAT 99–100
[2016-10-03] MEDS: PIPERACIL-TAZO 3.375 GM PREMIX 50 ML IV SCH ×5 (00:06→23:10)
[2016-10-03] MEDS: PROPOFOL 1000 MG/100 ML INJ 100 ML IV SCH ×3 (00:06→23:10)
[2016-10-03] MEDS: RESP: ALBUTEROL 2.5 MG/IPRATROPIUM 0.5 MG NEB (SCH) INH ×2 (02:47→08:24)
[2016-10-03 04:20] LABS: AUTOMATED NEUTROPHIL # 7.1 TH/MM3 (1.8-7.7); BASOPHIL % 0.5 % (0.0-2.0); EOSINOPHIL # 0.5 TH/MM3 (0-0.4); EOSINOPHIL % 6.1 % (0.0-4.0); HEMATOCRIT 27.5 % (39.0-51.0); LYMPH % 6.6 % (9.0-44.0); LYMPHOCYTE # 0.6 TH/MM3 (1.0-4.8); MEAN CELL VOLUME 86.9 FL (80.0-100.0); MEAN CORPUSCULAR HEMOGLOBIN 30.1 PG (27.0-34.0); MEAN CORPUSCULAR HGB CONC 34.6 % (32.0-36.0); MONO % 6.6 % (0.0-8.0); NEUT % 80.2 % (16.0-70.0); PLATELET COUNT 115 TH/MM3 (150-450); RED BLOOD COUNT 3.17 MIL/MM3 (4.50-5.90); RED CELL DISTRIBUTION WIDTH 14.7 % (11.6-17.2); WHITE BLOOD COUNT 8.8 TH/MM3 (4.0-11.0)
[2016-10-03 04:23] LABS: HEMO FLAGS AUTO DIFF
[2016-10-03] MEDS: CHLORHEXIDINE GLUCONATE 2 % 1 PACK (2 CLOTHS) TOP SCH (04:49)
[2016-10-03] MEDS: fentaNYL DRIP 250 ML IV SCH ×2 (04:50→17:44)
[2016-10-03 04:55] LABS: ALKALINE PHOSPHATASE 51 U/L (45-117); ALT (GPT) 171 U/L (12-78); ANION GAP 8 MEQ/L (5-15); AST (GOT) 143 U/L (15-37); BICARBONATE 27.5 MEQ/L (21.0-32.0); BLOOD UREA NITROGEN 16 MG/DL (7-18); CHLORIDE 113 MEQ/L (98-107); GLOMERULAR FILTRATION RATE 99 ML/MIN (>89); MAGNESIUM 2.1 MG/DL (1.5-2.5); POTASSIUM 3.2 MEQ/L (3.5-5.1); SODIUM (NA) 148 MEQ/L (136-145)
[2016-10-03 05:03] LABS: SCAN/DIFF AUTO DIFF CONFIRMED
[2016-10-03] MEDS: SODIUM CHLOR 0.9% 1000 ML INJ 1,000 ML IV SCH ×2 (05:07→17:44)
[2016-10-03] MEDS: POTASSIUM CHLOR 40 MEQ PREMIX 100 ML IV PRN (05:08)
[2016-10-03 05:35] LABS: BLOOD GAS CARBOXYHEMOGLOBIN 1.6 % (0-4); BLOOD GAS HCO3 25 mmol/L (22-26); BLOOD GAS O2 HGB SATURATION 96 % (90-100); BLOOD GAS OXYGEN CONTENT 14.9 Vol % (12.0-20.0); BLOOD GAS PCO2 50 mmHg (38-42); BLOOD GAS PO2 116 mmHg (61-120); BLOOD GAS TOTAL HGB 10.9 G/DL (12.0-16.0); CRITICAL VALUE NO; DRAW SITE RT RADIAL; FIO2 40 %; NUMBER OF ARTERIAL PUNCTURES 1; OXYGEN DEVICE VENTILATOR; STAT NO; TEMP CORR TO 98.6; ULNAR PULSE PRESENT; VENT SETTINGS PRVC/AC
--- NOTE | 2016-10-03 07:02 | RADRPT ---
EXAM DATE/TIME: 10/03/2016 05:00 [facility] COMPARISON: CHEST SINGLE AP, October 02, 2016, 16:12. INDICATIONS : Shortness of breath. possible pulmonary disease. MEDICAL HISTORY : None. SURGICAL HISTORY : None. ENCOUNTER: Subsequent ACUITY: 4 - 6 days PAIN SCORE: Non-responsive. LOCATION: Bilateral chest FINDINGS: The support devices are in place. There is no pneumothorax. There continues to be a right-sided effus ion which is stable. The left lung remains clear and well-aerated. The heart size is stable. Compared to the prior exam has been ossifican changes. CONCLUSION: No significant interval change. Kelton Singh MD on October 03, 2016 at 6:59 Board Certified Radiologist. This report was verified electronically.
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
[2016-10-03] MEDS: SODIUM CHLORIDE 0.9% FLUSH 10 ML FLUSH IV FLUSH SCH ×3 (08:36→20:04)
[2016-10-03] MEDS: CHLORHEXIDINE 0.12% (ORAL KIT) 15 ML CUP MT SCH ×2 (08:36→19:44)
[2016-10-03] MEDS: DOCUSATE SODIUM 100 MG CAP PO SCH ×2 (09:00→20:04)
[2016-10-03] MEDS: PANTOPRAZOLE SODIUM 40 MG VIAL IV SCH (10:48)
--- NOTE | 2016-10-03 11:48 | RADRPT ---
EXAM DATE/TIME: 10/03/2016 09:47 [facility] COMPARISON: No previous studies available for comparison. INDICATIONS : Evaluate left knee for fracture. RADIATION DOSE: 41.27 CTDIvol (mGy) MEDICAL HISTORY : Trauma alert 09/29/16 SURGICAL HISTORY : Non-responsive. ENCOUNTER: Initial ACUITY: 1 day PAIN SCALE: 5/10 LOCATION: Left Knee. TECHNIQUE: Volumetric scanning of the knee was performed. Using automated exposure control and adjustment of th e mA and/or kV according to patient size, radiation dose was kept as low as reasonably achievable to obtain optimal diagnostic quality images. FINDINGS: BONES: No evidence of fracture. Alignment is within normal limits. JOINTS: Some loss of the medial tibiofemoral joint space characteristic of some degree of mild osteoarthritis . There is also a suprapatellar effusion which contains a fluid/fluid level and non-dependent air. SOFT TISSUES: Diffuse subcutaneous edema. CONCLUSION: 1. Early osteoarthritic changes but no fracture. 2. However, there is a suprapatellar effusion with both a fluid/fluid level and nondependent air. Did the patient had a penetrating injury to the left knee? 3. In addition, there is diffuse subcutaneous edema throughout the left knee. If this is isolated to the left lower extremity and there is a history of penetrating trauma, this could represent a diffuse cellulitis. Frandy Lagos MD on October 03, 2016 at 11:34 Board Certified Radiologist. This report was verified electronically.
--- NOTE | 2016-10-03 13:00 | PD.VS.PN ---
Subjective Subjective/Hospital Course Status post thoracic endograft Patient intubated and sedated. Objective Vitals/I&O Date Time Temp Pulse Resp B/P Pulse Ox O2 Delivery O2 Flow Rate FiO2 10/03/16 11:18 99 40 10/03/16 10:14 100 100 10/03/16 08:00 98.3 91 18 139/68 100 10/03/16 08:00 40 10/03/16 08:00 91 10/03/16 07:41 100 40 10/03/16 04:29 100 40 10/03/16 04:00 40 10/03/16 04:00 96 10/03/16 04:00 98.2 96 17 151/76 100 10/03/16 01:40 100 40 10/03/16 00:00 88 10/03/16 00:00 40 10/03/16 00:00 97.8 88 16 162/74 100 10/02/16 22:44 100 40 10/02/16 20:12 100 40 10/02/16 20:00 40 10/02/16 20:00 98 10/02/16 20:00 98.5 96 17 175/79 100 10/02/16 16:17 100 40 10/02/16 16:00 98.4 102 18 182/84 100 10/02/16 16:00 40 10/02/16 15:00 97 10/03/16 10/03/16 10/03/16 07:00 15:00 23:00 Intake Total 984 ml Output Total 805 ml Balance 179 ml Physical Exam GENERAL: Patient intubated and sedated SKIN: Warm and dry. Wound vac to abdomen in place NECK: Supple,No JVD CARDIOVASCULAR: RRR, +S1,S2 RESPIRATORY: ET tube in place/Pt on mechanical ventilation GASTROINTESTINAL: Abdomen soft, non-tender, nondistended. wound vac in place MUSCULOSKELETAL: No cyanosis, or edema. Bilateral feet warm with triphasic signals. Laboratory Laboratory Tests Test 10/03/16 10/03/16 04:00 04:45 White Blood Count 8.8 Red Blood Count 3.17 Hemoglobin 9.5 Hematocrit 27.5 Mean Corpuscular Volume 86.9 Mean Corpuscular Hemoglobin 30.1 Mean Corpuscular Hemoglobin 34.6 Concent Red Cell Distribution Width 14.7 Platelet Count 115 Mean Platelet Volume 8.9 Neutrophils (%) (Auto) 80.2 Lymphocytes (%) (Auto) 6.6 Monocytes (%) (Auto) 6.6 Eosinophils (%) (Auto) 6.1 Basophils (%) (Auto) 0.5 Neutrophils # (Auto) 7.1 Lymphocytes # (Auto) 0.6 Monocytes # (Auto) 0.6 Eosinophils # (Auto) 0.5 Basophils # (Auto) 0.0 CBC Comment AUTO DIFF Differential Comment AUTO DIFF CONFIRMED Sodium Level 148 Potassium Level 3.2 Chloride Level 113 Carbon Dioxide Level 27.5 Anion Gap 8 Blood Urea Nitrogen 16 Creatinine 0.87 Estimat Glomerular Filtration 99 Rate Random Glucose 75 Calcium Level 7.9 Phosphorus Level 2.9 Magnesium Level 2.1 Total Bilirubin 1.0 Aspartate Amino Transf 143 (AST/SGOT) Alanine Aminotransferase 171 (ALT/SGPT) Alkaline Phosphatase 51 Total Protein 5.3 Albumin 1.9 Blood Gas Puncture Site RT RADIAL Blood Gas Patient Temperature 98.6 Blood Gas HCO3 25 Blood Gas Base Excess 0.0 Blood Gas Oxygen Saturation 96 Arterial Blood pH 7.33 Arterial Blood Partial 50 Pressure CO2 Arterial Blood Partial 116 Pressure O2 Arterial Blood Oxygen Content 14.9 Arterial Blood 1.6 Carboxyhemoglobin Arterial Blood Methemoglobin 1.0 Blood Gas Hemoglobin 10.9 Oxygen Delivery Device VENTILATOR Blood Gas Ventilator Setting PRVC/AC Blood Gas Inspired Oxygen 40 Date/Time Procedure Status Source Growth 09/29/16 04:20 Urine Culture - Final Complete Urine Clean Catch NO GROWTH IN 48 HOURS. Imaging Last 48 hours Impressions Chest X-Ray 10/03/16 0600 Signed Impressions: Service Date/Time: Monday, October 03, 2016 05:00 - CONCLUSION: No significant interval change. Kelton Singh MD Lower Extremity CT 10/03/16 0000 Signed Impressions: Service Date/Time: Monday, October 03, 2016 09:47 - CONCLUSION: 1. Early osteoarthritic changes but no fracture. 2. However, there is a suprapatellar effusion with both a fluid/fluid level and nondependent air. Did the patient had a penetrating injury to the left knee? 3. In addition, there is diffuse subcutaneous edema throughout the left knee. If this is isolated to the left lower extremity and there is a history of penetrating trauma, this could represent a diffuse cellulitis. Frandy Lagos MD Chest X-Ray 10/02/16 0600 Signed Impressions: Service Date/Time: Sunday, October 02, 2016 05:20 - CONCLUSION: 1. Bilateral lower lobe atelectasis versus pneumonia. Right effusion. There has been no significant change when compared to the prior exam. Pablo Barker MD Chest X-Ray 10/02/16 0000 Signed Impressions: Service Date/Time: Sunday, October 02, 2016 16:12 - CONCLUSION: 1. Right PICC line placed with tip near cavoatrial junction. No pneumothorax. David Mcleod MD Assessment and Plan Plan 36 year old male with traumatic descending thoracic aortic disruption. Patient has sealed descending thoracic aorta with patent left subclavian and no endoleak. Patient with stable groin and perfused extremities status post endograft placement. Plan Will continue to follow while in hospital Planning for surveillance (out patient) once discharged Ermelinda MANLEY [facility] [phone] Ermelinda Ramachandran Oct 03, 2016 13:00
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
[2016-10-04] VITALS (14 sets, daily range): BP systolic 131–164; BP diastolic 50–83; PULSE 87–125; RESP 16–28; TEMP 98–98.7; O2SAT 96–100
[2016-10-04] MEDS: SODIUM CHLOR 0.9% 1000 ML INJ 1,000 ML IV SCH ×2 (02:48→11:50)
[2016-10-04] MEDS: PROPOFOL 1000 MG/100 ML INJ 100 ML IV SCH ×5 (02:54→22:19)
[2016-10-04] MEDS: fentaNYL DRIP 250 ML IV SCH ×3 (02:54→22:20)
[2016-10-04] MEDS: CHLORHEXIDINE GLUCONATE 2 % 1 PACK (2 CLOTHS) TOP SCH (03:48)
[2016-10-04 03:57] LABS: AUTOMATED NEUTROPHIL # 5.6 TH/MM3 (1.8-7.7); BASOPHIL % 0.3 % (0.0-2.0); EOSINOPHIL # 0.5 TH/MM3 (0-0.4); EOSINOPHIL % 6.3 % (0.0-4.0); HEMATOCRIT 29.2 % (39.0-51.0); HEMO FLAGS DIFF FINAL; LYMPH % 9.5 % (9.0-44.0); LYMPHOCYTE # 0.7 TH/MM3 (1.0-4.8); MEAN CELL VOLUME 87.4 FL (80.0-100.0); MEAN CORPUSCULAR HEMOGLOBIN 29.2 PG (27.0-34.0); MEAN CORPUSCULAR HGB CONC 33.4 % (32.0-36.0); MONO % 9.3 % (0.0-8.0); NEUT % 74.6 % (16.0-70.0); PLATELET COUNT 130 TH/MM3 (150-450); RED BLOOD COUNT 3.34 MIL/MM3 (4.50-5.90); RED CELL DISTRIBUTION WIDTH 14.7 % (11.6-17.2); WHITE BLOOD COUNT 7.6 TH/MM3 (4.0-11.0)
[2016-10-04 04:38] LABS: ALT (GPT) 126 U/L (12-78); ANION GAP 9 MEQ/L (5-15); AST (GOT) 85 U/L (15-37); BICARBONATE 26.8 MEQ/L (21.0-32.0); BLOOD UREA NITROGEN 15 MG/DL (7-18); CHLORIDE 115 MEQ/L (98-107); GLOMERULAR FILTRATION RATE 131 ML/MIN (>89); MAGNESIUM 1.8 MG/DL (1.5-2.5); POTASSIUM 3.1 MEQ/L (3.5-5.1); SODIUM (NA) 151 MEQ/L (136-145)
[2016-10-04 04:41] LABS: ALKALINE PHOSPHATASE 59 U/L (45-117); TOTAL BILIRUBIN ADULT 0.9 MG/DL (0.2-1.0)
[2016-10-04] MEDS: POTASSIUM CHLOR 40 MEQ PREMIX 100 ML IV PRN ×2 (04:57→11:50)
[2016-10-04] MEDS: PIPERACIL-TAZO 3.375 GM PREMIX 50 ML IV SCH ×4 (04:57→23:20)
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
--- NOTE | 2016-10-04 07:01 | RADRPT ---
EXAM DATE/TIME: 10/04/2016 06:16 [facility] COMPARISON: CHEST SINGLE AP, October 03, 2016, 5:00. INDICATIONS : Respiratory distress. MEDICAL HISTORY : None. SURGICAL HISTORY : None. ENCOUNTER: Subsequent ACUITY: 4 - 6 days PAIN SCORE: Non-responsive. LOCATION: Bilateral chest FINDINGS: The support devices remain in place. There is no evidence of pneumothorax. There is some atelectasis in the left lung base. Otherwise, the left lung is clear and well-aerated. There is a stable right-si ded pleural effusion. The heart size is stable. There has been no new or significant changes compared to the prior examination. CONCLUSION: No significant interval change. Kelton Singh MD on October 04, 2016 at 6:59 Board Certified Radiologist. This report was verified electronically.
[2016-10-04] MEDS: CHLORHEXIDINE 0.12% (ORAL KIT) 15 ML CUP MT SCH ×2 (08:26→19:26)
[2016-10-04] MEDS: SODIUM CHLORIDE 0.9% FLUSH 10 ML FLUSH IV FLUSH SCH ×3 (08:27→20:00)
[2016-10-04] MEDS: DOCUSATE SODIUM 100 MG CAP PO SCH ×2 (08:28→20:00)
[2016-10-04] MEDS ORDERED: GENTAMICIN SULFATE 80 MG/2 ML VIAL ONE (08:31)
[2016-10-04] MEDS ORDERED: ceFAZolin 2 GM PREMIX 50 ML ONE (08:48)
[2016-10-04] MEDS ORDERED: VANCOMYCIN HCL 1000 MG VIAL ONE (08:48)
[2016-10-04] MEDS ORDERED: VANCOMYCIN HCL 1000 MG VIAL OTHER ONE (09:38)
--- NOTE | 2016-10-04 10:57 | PD.OP ---
cc: Asa Carter MD Operative Report Date of Surgery: Oct 04, 2016 Preoperative Diagnosis: Left humeral shaft fracture, left ulna shaft fracture with radial head subluxation Postoperative Diagnosis: Procedure: Open reduction internal fixation left humeral shaft, open reduction internal fixation of left ulna with reduction of radial head and Anesthesia: Gen. Surgeon: Asa Carter Pca(s): DIONISIO Busch PA-C The surgical procedure was assisted by my physician language assistant. My P.A. presence was necessary throughout this case for the manipulation and positioning of the surgical extremity. My P.A. was assisting me throughout the duration of this procedure. The skill set of a physician language assistant was medically necessary to complete this procedure. During the surgical case the surgical scheduler was working at the back table and the physician language assistant was directly assisting me. Operation and Findings: Patient was seen and evaluated preoperatively. Treatment options were discussed regarding humerus fracture including surgical and nonsurgical treatments with patient's family and informed consent was obtained Risks of surgery include bleeding, infection, nonunion, malunion, painful hardware, loss of motion of shoulder and elbow, weakness and numbness of arm, as well as medical competitions including blood clots stroke and . Patient was brought to operating room and placed on the OR table. GETA was administered by anesthesiologist. Operative arm and shoulder were prepped with alcohol followed by Hibiclens and draped usual sterile fashion. Timeout procedure was performed. IV antibiotics were given prior to incision. A standard anterior approach was utilized. Subcutaneous tissues was dissected with Bovie. Cephalic vein was identified and protected. Proximally the deltopectoral interval was opened. Distally the brachialis was split. The fracture was identified. There was an area of comminution. Soft tissue was removed from the fracture site. Fracture site was cleaned with curettes. At this point the fracture was reduced using fracture tenaculums. Multiplanar fluoroscopy confirmed excellent of fracture. A Synthes 3.5 plate was contoured to fit the humerus. Plate was provisionally held the bone with K wires. 3.5 cortical screws were placed on each side of the fracture. The screws were placed to add compression to fracture. Multiple screws were placed in each side of the fracture. All screws were predrilled and premeasured for appropriate length. Final fluoroscopy revealed excellent alignment of fracture with well-placed hardware. Incision was thoroughly irrigated. Fascia was closed with #1 Vicryl, subcutaneous tissues closed with 3-0 Vicryl, and skin was closed with silvestre. Next attention was turned towards the ulna. A 5 inch incision was made over the subcutaneous border the ulna. The fracture was identified. Traction was applied. Fracture was manipulated. Fracture keyed in anatomic alignment. A fracture tenaculum was used to aid in reduction. At this point the radial capitellar joint was visualized under fluoroscopy. The radial head was manipulated and concentrically reduced. An 8 hole Synthes plate was placed along the subcutaneous border of the ulna. Plate is bruising held the bone with K wires. 3.5 cortical screws were used to compress plate to bone. 4 screws were placed on each side of the fracture. Final fluoroscopy revealed excellent of fracture with well-placed hardware. Both the proximal and distal radioulnar joints appeared to be concentrically reduced. Wound was thoroughly irrigated. Fascia was closed with #1 Vicryl, subcutaneous tissues closed with 3 -0 Vicryl, and skin was closed with silvestre. Sterile dressings were applied. Patient was transferred back to intensive care in critical condition. Needle and sponge counts were correct. Patient was placed into a sling, and then transferred to recovery room in stable condition Asa Carter MD Oct 04, 2016 10:57
[2016-10-04] MEDS ORDERED: fentaNYL CITRATE 250 MCG/5 ML AMP ONE (11:29)
[2016-10-04] MEDS: PANTOPRAZOLE SODIUM 40 MG VIAL IV SCH (11:56)
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
[2016-10-04] MEDS ORDERED: POTASSIUM CHLORIDE 25 MEQ EFFERVESCENT TAB PO ONE (12:45)
[2016-10-04] MEDS ORDERED: BUMETANIDE INJ 1 MG/4 ML VIAL IV PUSH ONE (13:00)
--- NOTE | 2016-10-04 13:45 | PD.PROCEDR ---
Procedure Note Procedure Procedure Note: PIG TAIL CHEST TUBE PLACEMENT Indication: large pleural effusion, probable hemothorax Procedure was done at bedside. Clinically patient has hemothorax. US was used to los the R lower chest insertion site. The 5 th intercostal space was accessed with needle/syringe and bloody pleural fluid was aspirated. A guide wire was placed and after dilation and 10 F pigtail was placed using Seldinger technique. Connected to pleurovac, with significant drainage of sharmin bloody fluid. Tube connected to PleuroVac, draining well, initial output was 1.1 Liter hemorrhagic pleural fluid. The pigtail chest tube was secured with suture, and StayFix Sterile dressing placed. Patient tolerated procedure well. Blood loss for procedure was <1ml Leonie Allen MD Oct 04, 2016 13:45
[2016-10-04] MEDS ORDERED: PHENYLEPH/NS 1000 MCG/10 ML SYR IV ONE (13:54)
--- NOTE | 2016-10-04 14:40 | RADRPT ---
EXAM DATE/TIME: 10/04/2016 10:06 [facility] COMPARISON: CHEST SINGLE AP, October 04, 2016, 6:16. CHEST SINGLE AP, October 03, 2016, 5:00. CHEST SINGLE AP, Apri 2016, 14:11. FOREARM LEFT (2VWS), October 04, 2016, 10:06. INDICATIONS : ORIF left humerus. MEDICAL HISTORY : None. SURGICAL HISTORY : None. ENCOUNTER: Subsequent ACUITY: 4 - 6 days PAIN SCORE: Non-responsive. LOCATION: Left humerus. FINDINGS: Two view examination of the left humerus demonstrates postsurgical changes following open reduction a nd internal fixation of a mid humeral fracture. A medullary plate has been applied. CONCLUSION: Satisfactory postoperative appearance of the left humerus following ORIF Jax Chase MD on October 04, 2016 at 14:36 Board Certified Radiologist. This report was verified electronically.
--- NOTE | 2016-10-04 14:42 | RADRPT ---
EXAM DATE/TIME: 10/04/2016 10:06 [facility] COMPARISON: No previous studies available for comparison. INDICATIONS : ORIF left forearm. MEDICAL HISTORY : None. SURGICAL HISTORY : None. ENCOUNTER: Subsequent ACUITY: 4 - 6 days PAIN SCORE: Non-responsive. LOCATION: Left forearm. FINDINGS: Two view examination of the left forearm demonstrates postsurgical changes following ORIF of a proxim al ulnar shaft fracture. Fracture is stabilized with an extra medullary plate. Fracture fragments are in satisfactory alignment.CONCLUSION: Satisfactory postoperative appearance of the left ulna status post ORIF. Jax Chase MD on October 04, 2016 at 14:39 Board Certified Radiologist. This report was verified electronically.
[2016-10-04] MEDS: DEXTROSE 5% IN WATE 1000ML INJ 1,000 ML IV SCH ×2 (15:03→22:04)
--- NOTE | 2016-10-04 15:09 | RADRPT ---
EXAM DATE/TIME: 10/04/2016 14:11 [facility] COMPARISON: CHEST SINGLE AP, October 04, 2016, 6:16. INDICATIONS : Right side chest tube placement. MEDICAL HISTORY : Unobtainable. SURGICAL HISTORY : Unobtainable. ENCOUNTER: Subsequent ACUITY: 4 - 6 days PAIN SCORE: Non-responsive. LOCATION: Bilateral chest FINDINGS: A lumen pigtail chest catheter is present in the right lower chest. No evidence of pneumothorax. A large bore chest drainage tube on the left side remains projected in the medial left chest. Endotrac heal tube tip is 2.9 cm above the maggie. Gastric tube traverse the [id number]. PICC line cathet er projects over the distal superior vena cava. Small area of consolidation medial left lower lung. Right lung is clear. The right hemidiaphragm is well delineated. CONCLUSION: Right chest pigtail catheter in place. Good delineation of the right hemidiaphragm. No evidence pne umothorax. Giovany Cordova MD on October 04, 2016 at 15:05 Board Certified Radiologist. This report was verified electronically.
[2016-10-04] MEDS: RESP: ALBUTEROL 2.5 MG/IPRATROPIUM 0.5 MG NEB (PRN) INH (16:27)
--- NOTE | 2016-10-04 18:08 | RADRPT ---
EXAM DATE/TIME: 10/04/2016 15:42 [facility] COMPARISON: No previous studies available for comparison. INDICATIONS : Evaluate for abscess , inadequate sponge count ORAL CONTRAST: No oral contrast ingested. RADIATION DOSE: 18.13 CTDIvol (mGy) MEDICAL HISTORY : Non-responsive. SURGICAL HISTORY : Non-responsive. ENCOUNTER: Initial ACUITY: 1 day PAIN SCALE: Non-responsive LOCATION: TECHNIQUE: Volumetric scanning of the abdomen and pelvis was performed. Using automated exposure control and ad justment of the mA and/or kV according to patient size, radiation dose was kept as low as reasonably achievable to obtain optimal diagnostic quality images. FINDINGS: See chest CT performed at the same time for findings in the lower chest. NG is coiled in the stomach. There is a drain in the right upper quadrant anterior to the liver. Ther e is a laparotomy wound in the anterior abdomen. Mild anasarca is present. Previously seen material anterior to the liver as there is heterogeneity in the liver likely related to prior liver laceration. Contrast was not administered. There is some fluid or hemorrhage around th e spleen. There is some gallbladder sludge or residual contrast in gallbladder. There is a small amount of free fluid in the remainder of the abdomen and small to moderate free flui d in the pelvis. Purdy catheter is present in the bladder which is partially filled with air. There are multiple pelvic fractures including left sacrum, left iliac bone left superior and inferior pubic rami with widening of left sacroiliac joint. No significant change from prior exam of September 29 . The subcutaneous fluid around the penis which probably extends into hydroceles as well. CONCLUSION: 1. Removal of previous packing material anterior to the liver with the liver heterogeneity related to prior hepatic lacerations. 2. Small amount of free fluid in the abdomen and moderate free fluid in the pelvis. Moderate anasarca . 3. Multiple bony pelvic fractures not significantly changed since September 29. 4. Upper laparotomy anterior abdominal wall. 5. Subcutaneous edema around the penis especially the base of the penis. Purdy catheter in bladder. 6. No bowel obstruction. No free air is identified. See chest CT for description of lower chest. David Mcleod MD on October 04, 2016 at 17:58 Board Certified Radiologist. This report was verified electronically.
--- NOTE | 2016-10-04 18:14 | RADRPT ---
EXAM DATE/TIME: 10/04/2016 15:42 [facility] COMPARISON: No previous studies available for comparison. INDICATIONS : Evaluation for abscess, incorrect sponge count. RADIATION DOSE: 17.79 CTDIvol (mGy) MEDICAL HISTORY : Non-responsive. SURGICAL HISTORY : Non-responsive. ENCOUNTER: Initial ACUITY: 1 day PAIN SCALE: Non-responsive LOCATION: chest TECHNIQUE: Volumetric scanning of the chest was performed. Using automated exposure control and adjustment of t he mA and/or kV according to patient size, radiation dose was kept as low as reasonably achievable to obtain optimal diagnostic quality images. FINDINGS: The patient is status post stent-graft repair of an aortic dissection with stent extending from the p roximal transverse aorta through the proximal descending thoracic aorta. Previous mediastinal hematom a has decreased in size since January 29. A left chest tube remains in place with tiny residual left p neumothorax and there is also a small caliber right chest tube. There is a small residual right pleur al effusion. There is a mixed attenuation a residual left pleural effusion with basilar and dependent consolidation of both lungs. Right-sided PICC line tip is in superior vena cava. Endotracheal tube in satisfactory position. NG en ters stomach. There are no new bony abnormalities identified. CONCLUSION: Postoperative stent-graft repair of transected aorta. Decrease in size of mediastinal hematoma. Suppo rt apparatus as above. Residual bilateral pleural effusions and bilateral chest tubes and basilar dep endent consolidation in the lungs. No expected radiopaque foreign bodies identified within the chest. David Mcleod MD on October 04, 2016 at 18:07 Board Certified Radiologist. This report was verified electronically.
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
[2016-10-04] MEDS: ceFAZolin 2 GM PREMIX 50 ML IV SCH (18:46)
[2016-10-04 19:50] LABS: TOTAL PROTEIN,PLEURAL FLUID 2.5 GM/DL
[2016-10-04 20:40] LABS: PLEURAL FLUID LYMPHS 60 %
[2016-10-04 21:31] LABS: HEMATOCRIT 30.1 % (39.0-51.0); MEAN CELL VOLUME 86.1 FL (80.0-100.0); MEAN CORPUSCULAR HEMOGLOBIN 29.1 PG (27.0-34.0); MEAN CORPUSCULAR HGB CONC 33.8 % (32.0-36.0); PLATELET COUNT 165 TH/MM3 (150-450); RED BLOOD COUNT 3.49 MIL/MM3 (4.50-5.90); RED CELL DISTRIBUTION WIDTH 14.9 % (11.6-17.2); REVIEW FLAG FINAL; WHITE BLOOD COUNT 8.5 TH/MM3 (4.0-11.0)
[2016-10-05] VITALS (14 sets, daily range): BP systolic 136–174; BP diastolic 63–91; PULSE 104–125; RESP 22–26; TEMP 98.5–101.5; O2SAT 94–100
[2016-10-05] MEDS: PROPOFOL 1000 MG/100 ML INJ 100 ML IV SCH (02:32)
[2016-10-05] MEDS: CHLORHEXIDINE GLUCONATE 2 % 1 PACK (2 CLOTHS) TOP SCH (03:15)
[2016-10-05 03:56] LABS: BASOPHIL % 0.5 % (0.0-2.0); EOSINOPHIL # 0.4 TH/MM3 (0-0.4); EOSINOPHIL % 5.3 % (0.0-4.0); HEMATOCRIT 28.8 % (39.0-51.0); HEMO FLAGS DIFF FINAL; LYMPH % 12.5 % (9.0-44.0); MEAN CELL VOLUME 86.2 FL (80.0-100.0); MEAN CORPUSCULAR HEMOGLOBIN 29.3 PG (27.0-34.0); MONO % 9.1 % (0.0-8.0); NEUT % 72.6 % (16.0-70.0); PLATELET COUNT 172 TH/MM3 (150-450); RED BLOOD COUNT 3.34 MIL/MM3 (4.50-5.90); RED CELL DISTRIBUTION WIDTH 14.7 % (11.6-17.2); WHITE BLOOD COUNT 8.3 TH/MM3 (4.0-11.0)
[2016-10-05 04:12] LABS: ALT (GPT) 85 U/L (12-78); ANION GAP 8 MEQ/L (5-15); AST (GOT) 56 U/L (15-37); BICARBONATE 29.4 MEQ/L (21.0-32.0); BLOOD UREA NITROGEN 15 MG/DL (7-18); CHLORIDE 108 MEQ/L (98-107); GLOMERULAR FILTRATION RATE 99 ML/MIN (>89); MAGNESIUM 1.6 MG/DL (1.5-2.5); POTASSIUM 3.3 MEQ/L (3.5-5.1); SODIUM (NA) 145 MEQ/L (136-145)
[2016-10-05 04:18] LABS: ALKALINE PHOSPHATASE 55 U/L (45-117)
[2016-10-05] MEDS: POTASSIUM CHLOR 40 MEQ PREMIX 100 ML IV PRN (04:20)
[2016-10-05 04:53] LABS: BLOOD GAS BASE EXCESS 4.2 mmol/L (-2-2); BLOOD GAS CARBOXYHEMOGLOBIN 1.8 % (0-4); BLOOD GAS HCO3 28 mmol/L (22-26); BLOOD GAS METHEMOGLOBIN 0.8 % (0-2); BLOOD GAS O2 HGB SATURATION 95 % (90-100); BLOOD GAS OXYGEN CONTENT 13.4 Vol % (12.0-20.0); BLOOD GAS PCO2 41 mmHg (38-42); BLOOD GAS PO2 87 mmHg (61-120); CRITICAL VALUE NO; OXYGEN DEVICE VENTILATOR; TEMP CORR TO 98.6
[2016-10-05 04:54] LABS: DRAW SITE RT RADIAL; FIO2 35 %; NUMBER OF ARTERIAL PUNCTURES 1; STAT NO; ULNAR PULSE PRESENT; VENT SETTINGS AC/16/500/PEEP5
[2016-10-05] MEDS: PIPERACIL-TAZO 3.375 GM PREMIX 50 ML IV SCH ×4 (05:29→23:17)
--- NOTE | 2016-10-05 06:24 | RADRPT ---
EXAM DATE/TIME: 10/05/2016 05:48 [facility] COMPARISON: CHEST SINGLE AP, October 04, 2016, 6:16. CT THORAX W/O CONTRAST, October 04, 2016, 15:42. CHEST SINGLE AP, October 04, 2016, 14:11. INDICATIONS : Shortness of breath. MEDICAL HISTORY : None. SURGICAL HISTORY : None. ENCOUNTER: Initial ACUITY: 1 day PAIN SCORE: Non-responsive. LOCATION: Bilateral chest FINDINGS: A single view of the chest demonstrates the endotracheal tube, nasogastric tube, right-sided PICC david e and left-sided chest tube are all in good position. Persistent consolidation retrocardiac region. A ortic stent remains in place with some soft tissue thickening around the stent. Osseous structures are intact. CONCLUSION: Aortic stent remains in good position. The soft tissue continues to surround the aortic knob with mar ked indistinctness. It is similar in thickness to the 2 plain films on the . Bob Gandhi MD on October 05, 2016 at 6:20 Board Certified Radiologist. This report was verified electronically.
[2016-10-05] MEDS: RESP: ALBUTEROL 2.5 MG/IPRATROPIUM 0.5 MG NEB (PRN) INH (06:56)
--- NOTE | 2016-10-05 07:08 | PD.ORT.PN ---
Subjective Subjective Remarks POD 1 s/p ORIF left humeral shaft and left ulnar shaft fxs s/p multiple nonop pelvic fxs intubated/sedated Objective Vitals Vital Signs Date Time Temp Pulse Resp B/P Pulse Ox O2 Delivery O2 Flow Rate FiO2 10/05/16 04:00 35 10/05/16 04:00 98.9 113 23 142/68 96 10/05/16 04:00 113 10/05/16 04:00 96 35 10/05/16 01:26 98 35 10/05/16 00:00 98.5 112 22 140/73 100 10/05/16 00:00 35 10/05/16 00:00 112 10/04/16 20:00 98.7 125 21 152/83 100 10/04/16 20:00 35 10/04/16 20:00 125 10/04/16 19:53 96 35 10/04/16 17:20 99 35 10/04/16 17:20 35 10/04/16 16:27 99 35 10/04/16 16:00 122 10/04/16 16:00 98.4 116 28 164/78 100 10/04/16 16:00 35 10/04/16 13:30 100 100 10/04/16 12:00 98.6 114 24 148/74 100 10/04/16 12:00 110 10/04/16 12:00 35 10/04/16 11:22 97 35 10/04/16 09:00 100 100 10/04/16 08:00 100 10/04/16 08:00 98.6 100 22 131/67 100 10/04/16 08:00 35 10/04/16 07:59 100 35 I/O 10/04/16 10/04/16 10/04/16 10/05/16 10/05/16 10/05/16 07:00 15:00 23:00 07:00 15:00 23:00 Intake Total 1157 ml 1092 ml 829 ml 1119 ml Output Total 910 ml 2900 ml 780 ml 590 ml Balance 247 ml -1808 ml 49 ml 529 ml Intake IV Total 1157 ml 1092 ml 829 ml 1119 ml Output Urine Total 600 ml 1650 ml 450 ml 500 ml Gastric Drainage Total 250 ml 100 ml 120 ml 0 ml Chest Tube Drainage Total 60 ml 1150 ml 150 ml 70 ml Drainage Total 0 ml 60 ml 20 ml Result Diagram: 10/05/16 0340 10/05/16 0340 Imaging Last 24 hours Impressions Chest X-Ray 09/30/16 0723 Signed Impressions: Service Date/Time: Friday, September 30, 2016 06:18 - CONCLUSION: 1. No evidence of pneumothorax. 2. The tip of the NG tube appears to be in the distal esophagus. Recommend advancing approximately 10 cm. 3. Bibasilar infiltrates. Kelton Singh MD Objective Remarks LUE: dressings clean and dry. intact. +sling LLE: 2+ swelling of knee Assessment & Plan Assessment and Plan 1) Left Humeral Shaft Fx s/p ORIF - POD 1 2) Left Ulnar Shaft Fx s/p ORIF - POD 1 3) Left Superior/Inferior Rami Fxs - nonop 4) Left Sacral Fx - nonop 5) Left Ilium Fx - nonop 6) Left Knee swelling NWB on LUE/LLE WBAT for transfers RLE/RUE maintain sling daily dressing changes POD 2 of left arm with xeroform/ 4x4/LUCIANA Ortho surgeries complete\ CM for discharge planning f/u with [facility] or [facility] in 2 weeks Obey Jacobs Oct 05, 2016 07:08
[2016-10-05] MEDS: DOCUSATE SODIUM 100 MG CAP PO SCH ×2 (09:00→23:14)
[2016-10-05] MEDS: SODIUM CHLORIDE 0.9% FLUSH 10 ML FLUSH IV FLUSH SCH ×3 (09:00→21:00)
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
[2016-10-05] MEDS: ceFAZolin 2 GM PREMIX 50 ML IV SCH ×2 (10:53)
[2016-10-05] MEDS: PANTOPRAZOLE SODIUM 40 MG VIAL IV SCH ×2 (10:53→10:56)
[2016-10-05] MEDS: CHLORHEXIDINE 0.12% (ORAL KIT) 15 ML CUP MT SCH ×2 (10:57→20:00)
[2016-10-05] MEDS: DEXTROSE 5% IN WATE 1000ML INJ 1,000 ML IV SCH (10:57)
[2016-10-05] MEDS: DEXMEDETOMIDINE INJ 200 MCG in SODIUM CHLORIDE 0.9% INJ 50 ML IV SCH ×3 (10:59→23:14)
[2016-10-05] MEDS: fentaNYL DRIP 250 ML IV SCH (11:28)
[2016-10-05] MEDS: ACETAMINOPHEN/HYDROcodone 325 MG/10 MG TAB PO PRN (11:28)
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
[2016-10-05] MEDS: ENOXAPARIN SODIUM 30 MG/0.3 ML SYRINGE SQ SCH (23:13)
[2016-10-06] VITALS (10 sets, daily range): BP systolic 137–168; BP diastolic 67–99; PULSE 104–116; RESP 18–32; TEMP 98.3–99.4; O2SAT 96–99
[2016-10-06] MEDS: DEXMEDETOMIDINE INJ 200 MCG in SODIUM CHLORIDE 0.9% INJ 50 ML IV SCH (03:45)
[2016-10-06] MEDS: CHLORHEXIDINE GLUCONATE 2 % 1 PACK (2 CLOTHS) TOP SCH (04:00)
[2016-10-06 05:13] LABS: ALT (GPT) 69 U/L (12-78); ANION GAP 8 MEQ/L (5-15); AST (GOT) 72 U/L (15-37); BICARBONATE 29.4 MEQ/L (21.0-32.0); BLOOD UREA NITROGEN 16 MG/DL (7-18); CHLORIDE 105 MEQ/L (98-107); GLOMERULAR FILTRATION RATE 119 ML/MIN (>89); MAGNESIUM 1.8 MG/DL (1.5-2.5); POTASSIUM 3.7 MEQ/L (3.5-5.1); SODIUM (NA) 142 MEQ/L (136-145)
[2016-10-06 05:16] LABS: ALKALINE PHOSPHATASE 62 U/L (45-117); TOTAL BILIRUBIN ADULT 1.4 MG/DL (0.2-1.0)
[2016-10-06 05:19] LABS: BASOPHIL % 0.3 % (0.0-2.0); EOSINOPHIL # 0.3 TH/MM3 (0-0.4); EOSINOPHIL % 2.4 % (0.0-4.0); HEMATOCRIT 27.4 % (39.0-51.0); LYMPH % 7.9 % (9.0-44.0); MEAN CELL VOLUME 85.8 FL (80.0-100.0); MEAN CORPUSCULAR HEMOGLOBIN 29.4 PG (27.0-34.0); MEAN CORPUSCULAR HGB CONC 34.2 % (32.0-36.0); MONO % 6.9 % (0.0-8.0); NEUT % 82.5 % (16.0-70.0); PLATELET COUNT 227 TH/MM3 (150-450); RED CELL DISTRIBUTION WIDTH 14.9 % (11.6-17.2); WHITE BLOOD COUNT 12.1 TH/MM3 (4.0-11.0)
--- NOTE | 2016-10-06 05:21 | RADRPT ---
EXAM DATE/TIME: 10/06/2016 04:45 [facility] COMPARISON: CHEST SINGLE AP, October 05, 2016, 5:48. INDICATIONS : Shortness of breath. MEDICAL HISTORY : None. SURGICAL HISTORY : Aortic stent. Bilateral chest tubes. ENCOUNTER: Subsequent ACUITY: 1 week PAIN SCORE: Non-responsive. LOCATION: Bilateral chest FINDINGS: A single view of the chest demonstrates continued increased soft tissue around the aortic knob. There is fluid extending into left lung apex may be slightly worse than on the previous study. Aortic sten t remains in good position. The endotracheal tube and nasogastric have been removed. There is a right -sided PICC line in the left chest tube in stable position. Left humerus has been fixated pigtail cat heter on the right is unchanged there is no evidence of pneumothorax. Surgical drain overlies the yunior er. Osseous structures are intact. CONCLUSION: Continued increased density around the aortic knob with some fluid extending into the left lung apex. The apical density does appear to be denser than on either film on and even slightly denser jean n the may represent some ongoing hemorrhage. The bilateral chest tubes in good position. Bob Gandhi MD on October 06, 2016 at 5:18 Board Certified Radiologist. This report was verified electronically.
[2016-10-06 05:23] LABS: HEMO FLAGS AUTO DIFF
[2016-10-06] MEDS: PIPERACIL-TAZO 3.375 GM PREMIX 50 ML IV SCH ×3 (06:34→17:07)
[2016-10-06 06:50] LABS: BANDS 26 % (0-6); CORRECTED NUCLEATED RBC 1 /100 WBC (0-0); EOSINOPHILS 1 % (0-4); MYELOCYTES 1 % (0-0); NEUTROPHIL # MANUAL DIFF 10.5 TH/MM3 (1.8-7.7); POLYS (SEG NEUTROPHILS) 60 % (16-70); WBC DIFF SAMPLE 100
[2016-10-06 06:51] LABS: PLATELET ESTIMATE SMEAR NORMAL (NORMAL); PLATELET MORPHOLOGY NORMAL (NORMAL)
[2016-10-06 06:52] LABS: SCAN/DIFF FINAL DIFF MANUAL
--- NOTE | 2016-10-06 07:24 | PD.ORT.PN ---
Subjective Subjective Remarks POD 2 s/p ORIF left humeral shaft and left ulnar shaft fxs s/p multiple nonop pelvic fxs extubated awake and alert reports pain controlled. no complaints. Objective Vitals Vital Signs Date Time Temp Pulse Resp B/P Pulse Ox O2 Delivery O2 Flow Rate FiO2 10/06/16 04:00 98.4 104 28 137/72 97 10/06/16 04:00 104 10/06/16 03:24 98 Nasal Cannula 4.00 10/06/16 02:00 114 10/06/16 00:00 98.7 114 32 146/67 97 10/06/16 00:00 114 10/05/16 22:00 114 10/05/16 20:00 112 10/05/16 20:00 99.3 112 24 155/74 98 10/05/16 19:00 98 Nasal Cannula 4.00 10/05/16 18:00 104 10/05/16 16:00 104 10/05/16 16:00 98.7 104 26 147/71 94 10/05/16 13:52 94 Nasal Cannula 4 10/05/16 13:50 95 Nasal Cannula 4.00 10/05/16 13:15 35 10/05/16 12:30 22 10/05/16 12:00 35 10/05/16 12:00 125 10/05/16 12:00 98.5 125 22 174/91 94 10/05/16 11:36 Nasal Cannula 35 10/05/16 11:36 96 35 10/05/16 11:35 35 10/05/16 11:35 97 35 10/05/16 10:00 114 10/05/16 09:09 94 35 10/05/16 08:00 35 10/05/16 08:00 101.5 116 23 136/63 94 10/05/16 08:00 116 I/O 10/05/16 10/05/16 10/05/16 10/06/16 10/06/16 10/06/16 07:00 15:00 23:00 07:00 15:00 23:00 Intake Total 1119 ml 1138 ml 422 ml 194 ml Output Total 590 ml 750 ml 960 ml 750 ml Balance 529 ml 388 ml -538 ml -556 ml Intake IV Total 1119 ml 1138 ml 422 ml 194 ml Output Urine Total 500 ml 500 ml 700 ml 600 ml Gastric Drainage Total 0 ml 0 ml Chest Tube Drainage Total 70 ml 250 ml 250 ml 100 ml Drainage Total 20 ml 0 ml 10 ml 50 ml # Bowel Movements 0 0 2 Result Diagram: 10/06/16 0445 10/06/16 0445 Imaging Last 24 hours Impressions Chest X-Ray 09/30/16 0723 Signed Impressions: Service Date/Time: Friday, September 30, 2016 06:18 - CONCLUSION: 1. No evidence of pneumothorax. 2. The tip of the NG tube appears to be in the distal esophagus. Recommend advancing approximately 10 cm. 3. Bibasilar infiltrates. Kelton Singh MD Objective Remarks LUE: dressings clean and dry. intact. +sling LLE: 2+ swelling of knee Assessment & Plan Assessment and Plan 1) Left Humeral Shaft Fx s/p ORIF - POD 2 2) Left Ulnar Shaft Fx s/p ORIF - POD 2 3) Left Superior/Inferior Rami Fxs - nonop 4) Left Sacral Fx - nonop 5) Left Ilium Fx - nonop 6) Left Knee swelling NWB on LUE/LLE WBAT for transfers RLE/RUE maintain sling daily dressing changes POD 2 of left arm with xeroform/ 4x4/LUCIANA Ortho surgeries complete\ CM for discharge planning f/u with [facility] or [facility] in 2 weeks Obey Jacobs Oct 06, 2016 07:24
[2016-10-06] MEDS ORDERED: WHEEMIS3 (07:26)
[2016-10-06] MEDS ORDERED: HYDR-3366 PO (07:26)
[2016-10-06] MEDS: CHLORHEXIDINE 0.12% (ORAL KIT) 15 ML CUP MT SCH ×2 (07:36→20:00)
[2016-10-06] MEDS: DOCUSATE SODIUM 100 MG CAP PO SCH ×2 (08:09→21:00)
[2016-10-06] MEDS: SODIUM CHLORIDE 0.9% FLUSH 10 ML FLUSH IV FLUSH SCH ×3 (08:10→21:00)
[2016-10-06] MEDS: ENOXAPARIN SODIUM 30 MG/0.3 ML SYRINGE SQ SCH ×2 (08:10→21:11)
[2016-10-06] MEDS: PANTOPRAZOLE SODIUM 40 MG VIAL IV SCH (08:10)
[2016-10-06] MEDS: ACETAMINOPHEN/HYDROcodone 325 MG/10 MG TAB PO PRN ×4 (08:10→21:14)
--- NOTE | 2016-10-06 08:28 | PD.RAD ---
Radiology Note S/P Thoracic Aortic stent graft placement for transected proximal thoracic aorta S: Pt awake and extubated. Discussed above procedure with pt. Seems to understand what had occurred. O: Significantly improved due to excellent work by critical care team. A: Doing well. P: No further follow up by IR team unless requested. Jax Chase MD Oct 06, 2016 08:28
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
[2016-10-06] MEDS: MORPHINE SULFATE 4 MG/ML INJ IV PUSH PRN (10:19)
[2016-10-06] MEDS ORDERED: PILL SPLITTER OTHER PRN (10:30)
[2016-10-06] MEDS: METOPROLOL TARTRATE 25 MG TAB PO SCH ×2 (11:16→21:14)
--- NOTE | 2016-10-06 11:54 | RADRPT ---
EXAM DATE/TIME: 10/06/2016 10:29 [facility] COMPARISON: ABDOMEN KUB ONLY, September 30, 2016, 17:16. INDICATIONS : Evaluate for catheter piece. Left side catheter removed today; catheter integrity was not intact. MEDICAL HISTORY : None. SURGICAL HISTORY : Aortic stent. Bilateral chest tubes. ENCOUNTER: Subsequent ACUITY: 1 day PAIN SCORE: 0/10 LOCATION: Abdomen, left mid. FINDINGS: The bowel gas is nonspecific without any signs of obstruction or free air. there is an approximate 1. 1 cm radiopaque density overlapping the right 11th rib in the right upper quadrant of uncertain locat ion could be remnant of a catheter. There is a subcentimeter square-shaped density overlapping the le ft 10th rib could be in the stomach, however the exact etiology or location is not certain. Tubing st ructure overlaps the left lower quadrant of uncertain etiology or location. CONCLUSION: Radiopaque density overlapping the right upper quadrant could be a remnant of the tube and there is a nonspecific subcentimeter square-shaped density overlapping the left upper quadrant. Liliya Gonzales MD on October 06, 2016 at 11:47 Board Certified Radiologist. This report was verified electronically.
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
[2016-10-07] VITALS (7 sets, daily range): BP systolic 156–164; BP diastolic 75–86; PULSE 96–105; RESP 16–17; TEMP 97.8–99; O2SAT 94–97
[2016-10-07] MEDS: PIPERACIL-TAZO 3.375 GM PREMIX 50 ML IV SCH ×4 (01:19→15:18)
[2016-10-07] MEDS: CHLORHEXIDINE GLUCONATE 2 % 1 PACK (2 CLOTHS) TOP SCH (04:00)
[2016-10-07 05:42] LABS: AUTOMATED NEUTROPHIL # 10.3 TH/MM3 (1.8-7.7); BASOPHIL % 0.3 % (0.0-2.0); EOSINOPHIL # 0.3 TH/MM3 (0-0.4); EOSINOPHIL % 2.7 % (0.0-4.0); HEMATOCRIT 28.2 % (39.0-51.0); LYMPH % 9.4 % (9.0-44.0); LYMPHOCYTE # 1.2 TH/MM3 (1.0-4.8); MEAN CELL VOLUME 85.6 FL (80.0-100.0); MEAN CORPUSCULAR HEMOGLOBIN 28.5 PG (27.0-34.0); MEAN CORPUSCULAR HGB CONC 33.2 % (32.0-36.0); MONO % 7.5 % (0.0-8.0); NEUT % 80.1 % (16.0-70.0); PLATELET COUNT 307 TH/MM3 (150-450); RED CELL DISTRIBUTION WIDTH 14.6 % (11.6-17.2); WHITE BLOOD COUNT 12.9 TH/MM3 (4.0-11.0)
[2016-10-07 05:48] LABS: HEMO FLAGS AUTO DIFF
[2016-10-07 06:11] LABS: ALKALINE PHOSPHATASE 66 U/L (45-117); ALT (GPT) 62 U/L (12-78); ANION GAP 6 MEQ/L (5-15); AST (GOT) 61 U/L (15-37); BICARBONATE 30.1 MEQ/L (21.0-32.0); BLOOD UREA NITROGEN 17 MG/DL (7-18); CHLORIDE 104 MEQ/L (98-107); GLOMERULAR FILTRATION RATE 131 ML/MIN (>89); MAGNESIUM 1.8 MG/DL (1.5-2.5); POTASSIUM 3.1 MEQ/L (3.5-5.1); SODIUM (NA) 140 MEQ/L (136-145); TOTAL BILIRUBIN ADULT 1.2 MG/DL (0.2-1.0)
[2016-10-07 07:53] LABS: BANDS 9 % (0-6); EOSINOPHILS 6 % (0-4); METAMYELOCYTES 1 % (0-1); NEUTROPHIL # MANUAL DIFF 10.6 TH/MM3 (1.8-7.7); PLATELET ESTIMATE SMEAR NORMAL (NORMAL); PLATELET MORPHOLOGY NORMAL (NORMAL); POLYS (SEG NEUTROPHILS) 72 % (16-70); SCAN/DIFF FINAL DIFF MANUAL; WBC DIFF SAMPLE 100
[2016-10-07] MEDS: POTASSIUM CHLORIDE 25 MEQ EFFERVESCENT TAB NG SCH ×2 (09:00→20:25)
[2016-10-07] MEDS: MAGNESIUM OXIDE 400 MG TAB PO SCH ×2 (09:00→20:25)
[2016-10-07] MEDS: SODIUM CHLORIDE 0.9% FLUSH 10 ML FLUSH IV FLUSH SCH ×3 (09:11→20:25)
[2016-10-07] MEDS: METOPROLOL TARTRATE 25 MG TAB PO SCH ×2 (09:12→20:24)
[2016-10-07] MEDS: ENOXAPARIN SODIUM 30 MG/0.3 ML SYRINGE SQ SCH ×2 (09:12→20:25)
[2016-10-07] MEDS: DOCUSATE SODIUM 100 MG CAP PO SCH ×2 (09:12→20:25)
[2016-10-07] MEDS: PANTOPRAZOLE SODIUM 40 MG VIAL IV SCH (09:13)
[2016-10-07] MEDS: ACETAMINOPHEN/HYDROcodone 325 MG/10 MG TAB PO PRN ×3 (09:13→17:22)
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
[2016-10-07] MEDS: FAMOTIDINE 20 MG TAB PO SCH (20:24)
[2016-10-08] VITALS (7 sets, daily range): BP systolic 138–179; BP diastolic 76–91; PULSE 82–105; RESP 16–22; TEMP 97.6–99.6; O2SAT 95–97
[2016-10-08] MEDS: PIPERACIL-TAZO 3.375 GM PREMIX 50 ML IV SCH ×2 (00:07→05:48)
[2016-10-08 04:54] LABS: BASOPHIL % 0.3 % (0.0-2.0); EOSINOPHIL # 0.5 TH/MM3 (0-0.4); EOSINOPHIL % 3.3 % (0.0-4.0); HEMATOCRIT 29.4 % (39.0-51.0); LYMPH % 9.6 % (9.0-44.0); LYMPHOCYTE # 1.3 TH/MM3 (1.0-4.8); MEAN CELL VOLUME 84.1 FL (80.0-100.0); MEAN CORPUSCULAR HEMOGLOBIN 29.1 PG (27.0-34.0); MEAN CORPUSCULAR HGB CONC 34.6 % (32.0-36.0); MONO % 7.1 % (0.0-8.0); NEUT % 79.7 % (16.0-70.0); PLATELET COUNT 387 TH/MM3 (150-450); RED CELL DISTRIBUTION WIDTH 14.7 % (11.6-17.2); WHITE BLOOD COUNT 13.8 TH/MM3 (4.0-11.0)
[2016-10-08 04:57] LABS: HEMO FLAGS AUTO DIFF
[2016-10-08 05:11] LABS: ALT (GPT) 61 U/L (12-78); ANION GAP 10 MEQ/L (5-15); AST (GOT) 61 U/L (15-37); BICARBONATE 25.4 MEQ/L (21.0-32.0); BLOOD UREA NITROGEN 16 MG/DL (7-18); CHLORIDE 104 MEQ/L (98-107); GLOMERULAR FILTRATION RATE 133 ML/MIN (>89); MAGNESIUM 1.8 MG/DL (1.5-2.5); POTASSIUM 3.1 MEQ/L (3.5-5.1); SODIUM (NA) 139 MEQ/L (136-145)
[2016-10-08 05:13] LABS: ALKALINE PHOSPHATASE 87 U/L (45-117); TOTAL BILIRUBIN ADULT 1.4 MG/DL (0.2-1.0)
[2016-10-08] MEDS: ACETAMINOPHEN/HYDROcodone 325 MG/10 MG TAB PO PRN ×5 (05:37→23:31)
--- NOTE | 2016-10-08 06:59 | RADRPT ---
EXAM DATE/TIME: 10/08/2016 05:22 [facility] COMPARISON: CHEST SINGLE AP, October 07, 2016, 8:33. INDICATIONS : Shortness of breath. MEDICAL HISTORY : Smoker. SURGICAL HISTORY : Coronary artery stent. Bilateral chest tubes. ENCOUNTER: Subsequent ACUITY: 2 weeks PAIN SCORE: Non-responsive. LOCATION: Bilateral chest FINDINGS: A single portable frontal view the chest shows interval removal of the left thoracostomy tube. No pne umothorax. Right-sided PICC line and thoracic endograft are noted. A small caliber right thoracostomy tube is seen anteriorly within the right hemithorax. Consolidation is noted within both lung bases m ore pronounced on the left. This is stable. CONCLUSION: 1. No pneumothorax following left thoracostomy tube removal. 2. Unchanged bibasilar pulmonary infiltrates. Giovany Navarrete Jr., MD on October 08, 2016 at 6:57 Board Certified Radiologist. This report was verified electronically.
[2016-10-08 07:30] LABS: BANDS 3 % (0-6); EOSINOPHILS 3 % (0-4); PLATELET ESTIMATE SMEAR HIGH (NORMAL); PLATELET MORPHOLOGY NORMAL (NORMAL); POLYS (SEG NEUTROPHILS) 84 % (16-70); WBC DIFF SAMPLE 100
[2016-10-08 07:31] LABS: SCAN/DIFF FINAL DIFF MANUAL; TOXIC VACUOLATION PRESENT (NONE SEEN)
[2016-10-08] MEDS ORDERED: POTASSIUM CHLORIDE 20 MEQ CONTROLLED RELEASE TAB PO ONE (10:00)
[2016-10-08] MEDS: DOCUSATE SODIUM 100 MG CAP PO SCH ×2 (10:13→19:42)
[2016-10-08] MEDS: METOPROLOL TARTRATE 25 MG TAB PO SCH ×2 (10:13→19:37)
[2016-10-08] MEDS: FAMOTIDINE 20 MG TAB PO SCH ×2 (10:13→19:37)
[2016-10-08] MEDS: ENOXAPARIN SODIUM 30 MG/0.3 ML SYRINGE SQ SCH ×2 (10:18→19:46)
[2016-10-08] MEDS: LISINOPRIL 20 MG TAB PO SCH (10:22)
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
[2016-10-08] MEDS: SODIUM CHLORIDE 0.9% FLUSH 10 ML FLUSH IV FLUSH SCH ×3 (14:02→19:42)
--- NOTE | 2016-10-08 15:47 | RADRPT ---
EXAM DATE/TIME: 10/08/2016 14:45 [facility] COMPARISON: CT BRAIN W/O CONTRAST, September 29, 2016, 3:15. INDICATIONS : Trauma. MEDICAL HISTORY : Polysubstance abuse. SURGICAL HISTORY : Orthopaedic surgeries., right chest tube, abdomen wound vac ENCOUNTER: Initial ACUITY: 1 day PAIN SCORE: 0/10 LOCATION: cranial TECHNIQUE: Multiplanar, multisequence MRI of the brain was performed without contrast. FINDINGS: CEREBRUM: The ventricles are normal for age. No evidence of midline shift, mass lesion, hemorrhage or acute in farction. No extraaxial fluid collections are seen. The pituitary gland and suprasellar cistern are normal in configuration. WHITE MATTER: No significant signal abnormalities are seen in the white matter. POSTERIOR FOSSA: The cerebellum and brainstem are intact. The 4th ventricle is midline. The cerebellopontine angle is unremarkable. The cerebellar tonsils are normal in position. DIFFUSION IMAGING: No focal areas of restricted diffusion are seen. No evidence of acute infarction. EXTRACRANIAL: The visualized portions of the orbits and paranasal sinuses are unremarkable. There is some field di stortion artifact in the scalp posterior high occipital from presumed skin silvestre. CONCLUSION: Negative MRI of the brain without contrast. Giovany Cordova MD on October 08, 2016 at 15:43 Board Certified Radiologist. This report was verified electronically.
[2016-10-08] MEDS: MELATONIN 5 MG TAB PO PRN (23:31)
[2016-10-09] VITALS: BP 167/84; PULSE 96; RESP 22; TEMP 99.9; O2SAT 94
[2016-10-09 04:00] VITALS: BP 168/90; PULSE 71; RESP 19; TEMP 97; O2SAT 97
[2016-10-09] MEDS: ACETAMINOPHEN/HYDROcodone 325 MG/10 MG TAB PO PRN ×2 (06:21→09:12)
--- NOTE | 2016-10-09 06:45 | RADRPT ---
EXAM DATE/TIME: 10/09/2016 06:07 [facility] COMPARISON: CHEST SINGLE AP, October 08, 2016, 5:22. INDICATIONS : Shortness of breath, possible pulmonary disease. MEDICAL HISTORY : None. SURGICAL HISTORY : Aortic arch stent ENCOUNTER: Subsequent ACUITY: 1 week PAIN SCORE: 5/10 LOCATION: Bilateral chest FINDINGS: A single portable frontal view the chest shows a right sided PICC line and right-sided thoracostomy t ube. Aortic stent graft. Consolidation of the left lung base is worse from the prior study. Consolida tion within the right infrahilar region is stable. No pneumothorax. Heart is at the upper limits of n ormal in terms of size. CONCLUSION: 1. Worsening consolidation in the left lung base. 2. Stable consolidation right infrahilar region. Giovany Navarrete Jr., MD on October 09, 2016 at 6:42 Board Certified Radiologist. This report was verified electronically.
[2016-10-09 08:00] VITALS: BP 155/83; PULSE 80; RESP 18; TEMP 97; O2SAT 98
[2016-10-09] MEDS: SODIUM CHLORIDE 0.9% FLUSH 10 ML FLUSH IV FLUSH SCH ×3 (09:00→19:51)
[2016-10-09] MEDS: LISINOPRIL 20 MG TAB PO SCH (09:07)
[2016-10-09] MEDS: ENOXAPARIN SODIUM 30 MG/0.3 ML SYRINGE SQ SCH ×2 (09:08→19:43)
[2016-10-09] MEDS: METOPROLOL TARTRATE 25 MG TAB PO SCH ×2 (09:08→19:43)
[2016-10-09] MEDS: DOCUSATE SODIUM 100 MG CAP PO SCH ×2 (09:08→19:43)
[2016-10-09] MEDS: FAMOTIDINE 20 MG TAB PO SCH ×2 (09:08→19:43)
[2016-10-09 12:00] VITALS: BP 135/76; PULSE 105; RESP 19; TEMP 96.8; O2SAT 96
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
[2016-10-09 16:00] VITALS: BP 158/91; PULSE 100; RESP 18; TEMP 99.9; O2SAT 96
[2016-10-09 20:10] VITALS: BP 168/86; PULSE 105; RESP 17; TEMP 99.3; O2SAT 95
[2016-10-10] VITALS (7 sets, daily range): BP systolic 137–184; BP diastolic 71–89; PULSE 98–110; RESP 17–18; TEMP 97.3–100.1; O2SAT 95–98
[2016-10-10] MEDS: ACETAMINOPHEN/HYDROcodone 325 MG/10 MG TAB PO PRN ×6 (00:02→21:30)
[2016-10-10 06:25] LABS: AUTOMATED NEUTROPHIL # 14.5 TH/MM3 (1.8-7.7); BASOPHIL # 0.2 TH/MM3 (0-0.2); BASOPHIL % 1.1 % (0.0-2.0); EOSINOPHIL # 0.4 TH/MM3 (0-0.4); EOSINOPHIL % 2.4 % (0.0-4.0); HEMATOCRIT 32.9 % (39.0-51.0); HEMO FLAGS DIFF FINAL; LYMPH % 11.5 % (9.0-44.0); LYMPHOCYTE # 2.2 TH/MM3 (1.0-4.8); MONO % 7.6 % (0.0-8.0); NEUT % 77.4 % (16.0-70.0); PLATELET COUNT 439 TH/MM3 (150-450); RED BLOOD COUNT 3.87 MIL/MM3 (4.50-5.90); WHITE BLOOD COUNT 18.7 TH/MM3 (4.0-11.0)
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
[2016-10-10 06:52] LABS: ALKALINE PHOSPHATASE 132 U/L (45-117); ALT (GPT) 64 U/L (12-78); ANION GAP 10 MEQ/L (5-15); AST (GOT) 67 U/L (15-37); BICARBONATE 25.3 MEQ/L (21.0-32.0); BLOOD UREA NITROGEN 14 MG/DL (7-18); CHLORIDE 100 MEQ/L (98-107); GLOMERULAR FILTRATION RATE 114 ML/MIN (>89); POTASSIUM 3.5 MEQ/L (3.5-5.1); SODIUM (NA) 135 MEQ/L (136-145); TOTAL BILIRUBIN ADULT 1.3 MG/DL (0.2-1.0)
[2016-10-10] MEDS: ENOXAPARIN SODIUM 30 MG/0.3 ML SYRINGE SQ SCH ×2 (08:13→21:30)
[2016-10-10] MEDS: DOCUSATE SODIUM 100 MG CAP PO SCH ×2 (08:14→21:30)
[2016-10-10] MEDS: SODIUM CHLORIDE 0.9% FLUSH 10 ML FLUSH IV FLUSH SCH ×3 (08:14→21:31)
[2016-10-10] MEDS: LISINOPRIL 20 MG TAB PO SCH (08:14)
[2016-10-10] MEDS: METOPROLOL TARTRATE 25 MG TAB PO SCH (08:14)
[2016-10-10] MEDS: FAMOTIDINE 20 MG TAB PO SCH ×2 (08:15→21:30)
[2016-10-10] MEDS ORDERED: METOPROLOL TARTRATE 25 MG TAB PO SCH (09:00)
[2016-10-10] MEDS: METOPROLOL TARTRATE 50 MG TAB PO SCH ×2 (10:12→21:30)
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
[2016-10-11] VITALS (7 sets, daily range): BP systolic 118–155; BP diastolic 59–79; PULSE 94–102; RESP 18–20; TEMP 96.9–99.2; O2SAT 95–97
[2016-10-11] MEDS: ACETAMINOPHEN/HYDROcodone 325 MG/10 MG TAB PO PRN ×4 (04:06→20:01)
[2016-10-11] MEDS: METOPROLOL TARTRATE 50 MG TAB PO SCH ×2 (08:54→20:01)
[2016-10-11] MEDS: LISINOPRIL 20 MG TAB PO SCH (08:54)
[2016-10-11] MEDS: DOCUSATE SODIUM 100 MG CAP PO SCH ×2 (08:54→20:01)
[2016-10-11] MEDS: FAMOTIDINE 20 MG TAB PO SCH ×2 (08:55→20:01)
[2016-10-11] MEDS: ENOXAPARIN SODIUM 30 MG/0.3 ML SYRINGE SQ SCH ×2 (08:55→20:02)
[2016-10-11] MEDS: SODIUM CHLORIDE 0.9% FLUSH 10 ML FLUSH IV FLUSH SCH ×3 (08:56→20:02)
[2016-10-11] MEDS: SODIUM CHLORIDE 0.9% FLUSH 10 ML FLUSH IV FLUSH PRN ×2 (11:37→17:42)
[2016-10-11] MEDS: MORPHINE SULFATE 4 MG/ML INJ IV PUSH PRN ×2 (11:37→17:42)
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
[2016-10-11] MEDS: ALUMINUM/MAGNESIUM/SIMETH 30 ML CUP PO PRN (20:01)
[2016-10-12 00:36] VITALS: BP 125/56; PULSE 102; RESP 19; TEMP 97.8; O2SAT 95
[2016-10-12] MEDS: ALUMINUM/MAGNESIUM/SIMETH 30 ML CUP PO PRN (02:37)
[2016-10-12 04:18] VITALS: BP 125/58; PULSE 95; RESP 20; TEMP 97.9; O2SAT 96
[2016-10-12] MEDS: ACETAMINOPHEN/HYDROcodone 325 MG/10 MG TAB PO PRN ×4 (05:06→21:51)
[2016-10-12 05:40] LABS: HEMATOCRIT 32.7 % (39.0-51.0); MEAN CELL VOLUME 84.4 FL (80.0-100.0); MEAN CORPUSCULAR HGB CONC 33.2 % (32.0-36.0); PLATELET COUNT 549 TH/MM3 (150-450); RED BLOOD COUNT 3.87 MIL/MM3 (4.50-5.90); RED CELL DISTRIBUTION WIDTH 14.9 % (11.6-17.2); REVIEW FLAG FINAL; WHITE BLOOD COUNT 15.3 TH/MM3 (4.0-11.0)
--- NOTE | 2016-10-12 07:26 | RADRPT ---
EXAM DATE/TIME: 10/12/2016 06:39 [facility] COMPARISON: CT THORAX W/O CONTRAST, October 04, 2016, 15:42. CHEST SINGLE AP, October 10, 2016, 5:26. INDICATIONS : Hemothorax. MEDICAL HISTORY : Sunstance abuse. SURGICAL HISTORY : Chest tube, right. Abdominal wound vac. Aortic stent. Left humerus repair. ENCOUNTER: Subsequent ACUITY: 2 weeks PAIN SCORE: 2/10 LOCATION: Bilateral chest FINDINGS: Portable upright expiratory view the chest demonstrates a normal-sized cardiac silhouette with stable abnormal contour to the mediastinum. Endoluminal stent graft is present in the arch and proximal shanelle cending thoracic aorta. Right upper extremity PICC distal tip is in the upper right atrium. Small bor e pigtail catheter is present in the inferior right hemithorax. No pneumothorax is visualized. There is mild atelectasis at the right lung base. There is a stable small left basilar pleural-parenchymal opacity. CONCLUSION: 1. Right chest tube remains present and no pneumothorax is visualized. There is mild atelectasis at t he right lung base. 2. Stable small left basilar opacity characteristic of a pleural effusion with associated volume loss and/or consolidation. Alejandro Nair MD on October 12, 2016 at 7:22 Board Certified Radiologist. This report was verified electronically.
[2016-10-12 08:00] VITALS: BP 143/72; PULSE 94; RESP 18; TEMP 98.2; O2SAT 97
[2016-10-12] MEDS: ENOXAPARIN SODIUM 30 MG/0.3 ML SYRINGE SQ SCH ×2 (09:03→21:49)
[2016-10-12] MEDS: FAMOTIDINE 20 MG TAB PO SCH ×2 (09:04→21:48)
[2016-10-12] MEDS: LISINOPRIL 20 MG TAB PO SCH (09:04)
[2016-10-12] MEDS: SODIUM CHLORIDE 0.9% FLUSH 10 ML FLUSH IV FLUSH SCH ×3 (09:04→21:48)
[2016-10-12] MEDS: METOPROLOL TARTRATE 50 MG TAB PO SCH ×2 (09:04→21:48)
[2016-10-12] MEDS: DOCUSATE SODIUM 100 MG CAP PO SCH (09:04)
[2016-10-12] MEDS: GABAPENTIN 300 MG CAP PO SCH ×3 (10:45→18:26)
[2016-10-12] MEDS ORDERED: LACTULOSE SYRUP 20 GM/30 ML CUP PO ONE (10:45)
[2016-10-12 12:00] VITALS: BP 110/61; PULSE 100; RESP 18; TEMP 95.3; O2SAT 95
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
[2016-10-12 15:55] VITALS: BP 136/69; PULSE 90; RESP 16; TEMP 98.1; O2SAT 97
[2016-10-12 20:25] VITALS: BP 128/70; PULSE 98; RESP 18; TEMP 98.6; O2SAT 97
[2016-10-12] MEDS: DOCUSATE SODIUM 50 MG/SENNA 8.6 MG TAB PO SCH (21:00)
[2016-10-13 00:35] VITALS: BP 129/73; PULSE 95; RESP 18; TEMP 99.1; O2SAT 95
[2016-10-13] MEDS: MELATONIN 5 MG TAB PO PRN (01:24)
--- NOTE | 2016-10-13 05:43 | RADRPT ---
EXAM DATE/TIME: 10/13/2016 04:59 [facility] COMPARISON: CHEST SINGLE AP, October 12, 2016, 6:39. INDICATIONS : Post chest tube removal. MEDICAL HISTORY : None. SURGICAL HISTORY : Aorta stent. ENCOUNTER: Subsequent ACUITY: 2 weeks PAIN SCORE: 4/10 LOCATION: Bilateral chest FINDINGS: The small right chest tube has been removed. There is no pneumothorax. There continues to be a mild i nfiltrate in the right lung base. There is stable atelectasis in the left lung base. No definite pleu ral effusions. No significant changes. CONCLUSION: Small right chest tube removed. No pneumothorax. Kelton Singh MD on October 13, 2016 at 5:41 Board Certified Radiologist. This report was verified electronically.
[2016-10-13 08:00] VITALS: BP 126/69; PULSE 97; RESP 16; TEMP 96.4; O2SAT 99
[2016-10-13] MEDS: SODIUM CHLORIDE 0.9% FLUSH 10 ML FLUSH IV FLUSH SCH ×3 (08:40→21:00)
[2016-10-13] MEDS: ENOXAPARIN SODIUM 30 MG/0.3 ML SYRINGE SQ SCH ×2 (08:41→22:10)
[2016-10-13] MEDS: DOCUSATE SODIUM 50 MG/SENNA 8.6 MG TAB PO SCH ×2 (08:41→22:09)
[2016-10-13] MEDS: ACETAMINOPHEN/HYDROcodone 325 MG/10 MG TAB PO PRN ×3 (08:41→22:09)
[2016-10-13] MEDS: GABAPENTIN 300 MG CAP PO SCH ×3 (08:41→17:09)
[2016-10-13] MEDS: FAMOTIDINE 20 MG TAB PO SCH ×2 (08:41→22:08)
[2016-10-13] MEDS: METOPROLOL TARTRATE 50 MG TAB PO SCH ×2 (08:41→22:08)
[2016-10-13] MEDS: LISINOPRIL 20 MG TAB PO SCH (08:41)
[2016-10-13 12:00] VITALS: BP 141/67; PULSE 93; RESP 16; TEMP 97; O2SAT 97
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
[2016-10-13 16:00] VITALS: BP 128/55; PULSE 90; RESP 16; TEMP 97; O2SAT 98
[2016-10-13 20:00] VITALS: BP 125/60; PULSE 98; RESP 18; TEMP 98.3; O2SAT 99
[2016-10-14] VITALS: BP 132/68; PULSE 103; RESP 18; TEMP 98.9; O2SAT 97
[2016-10-14] MEDS: ACETAMINOPHEN/HYDROcodone 325 MG/10 MG TAB PO PRN ×2 (04:49→10:58)
--- NOTE | 2016-10-14 06:50 | PD.ORT.PN ---
Subjective Subjective Remarks Resting comfortably with no new complaints. Is working hard on passive range of motion of left upper extremity Objective Vitals Vital Signs Date Time Temp Pulse Resp B/P Pulse Ox O2 Delivery O2 Flow Rate FiO2 10/14/16 00:00 98.9 103 18 132/68 97 10/13/16 20:00 98.3 98 18 125/60 99 10/13/16 18:53 Room Air 10/13/16 16:00 97.0 90 16 128/55 98 10/13/16 12:00 97.0 93 16 141/67 97 10/13/16 08:00 96.4 97 16 126/69 99 I/O 10/13/16 10/13/16 10/13/16 10/14/16 10/14/16 10/14/16 07:00 15:00 23:00 07:00 15:00 23:00 Intake Total 240 ml 600 ml 960 ml 480 ml Output Total 600 ml 0 ml 800 ml Balance -360 ml 600 ml 960 ml -320 ml Intake Oral 240 ml 600 ml 960 ml 480 ml Output Urine Total 600 ml 800 ml Drainage Total 0 ml # Voids 3 3 # Bowel Movements 1 0 0 0 Result Diagram: 10/12/16 0505 10/10/16 0500 Imaging Last 24 hours Impressions Chest X-Ray 09/30/16 0723 Signed Impressions: Service Date/Time: Friday, September 30, 2016 06:18 - CONCLUSION: 1. No evidence of pneumothorax. 2. The tip of the NG tube appears to be in the distal esophagus. Recommend advancing approximately 10 cm. 3. Bibasilar infiltrates. Kelton Singh MD Objective Remarks LUE: dressings clean and dry. intact. +sling LLE: 2+ swelling of knee Assessment & Plan Assessment and Plan 1) Left Humeral Shaft Fx s/p ORIF - POD 3 2) Left Ulnar Shaft Fx s/p ORIF - POD 3 3) Left Superior/Inferior Rami Fxs - nonop 4) Left Sacral Fx - nonop 5) Left Ilium Fx - nonop 6) Left Knee swelling NWB on LUE/LLE WBAT for transfers RLE/RUE maintain sling daily dressing changes left arm with xeroform/ 4x4/LUCIANA Ortho surgeries complete CM for discharge planning f/u with [facility] or PA in 2 weeks Anibal Campa Jr. PA Oct 14, 2016 06:50
[2016-10-14 08:00] VITALS: BP 122/56; PULSE 80; RESP 17; TEMP 96.3; O2SAT 98
[2016-10-14] MEDS: GABAPENTIN 300 MG CAP PO SCH (08:15)
[2016-10-14] MEDS: LISINOPRIL 20 MG TAB PO SCH (08:15)
[2016-10-14] MEDS: METOPROLOL TARTRATE 50 MG TAB PO SCH (08:16)
[2016-10-14] MEDS: DOCUSATE SODIUM 50 MG/SENNA 8.6 MG TAB PO SCH (08:16)
[2016-10-14] MEDS: ENOXAPARIN SODIUM 30 MG/0.3 ML SYRINGE SQ SCH (08:16)
[2016-10-14] MEDS: FAMOTIDINE 20 MG TAB PO SCH (08:16)
[2016-10-14] MEDS: SODIUM CHLORIDE 0.9% FLUSH 10 ML FLUSH IV FLUSH SCH ×2 (08:18)
[2016-10-14 12:00] VITALS: BP 126/60; PULSE 87; RESP 18; TEMP 97.5; O2SAT 95
[2016-10-14] MEDS ORDERED: ENOX30P SQ (12:34)
[2016-10-14] MEDS ORDERED: SENN1TAB PO (12:34)
[2016-10-14] MEDS ORDERED: MELA1TAB22 PO (12:34)
[2016-10-14] MEDS ORDERED: LISI-515 PO (12:34)
[2016-10-14] MEDS ORDERED: NEUR300C PO (12:34)
[2016-10-14] MEDS ORDERED: METO-309 PO (12:34)
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
[2016-10-17 11:46] LABS: DRAW SITE ART LINE
[2016-10-17 11:47] LABS: CRITICAL VALUE YES
[2016-10-24] MEDS ORDERED: ACET325T PO (10:18)
[2016-10-24] MEDS ORDERED: NEUR400C PO (10:18)
[2016-10-24] MEDS ORDERED: XARE10TA PO (10:18)
[2016-10-24] MEDS ORDERED: SENN1TAB PO (10:18)
[2016-10-24] MEDS ORDERED: LEVA750T PO (10:18)
[2016-10-24] MEDS ORDERED: HYDR-3580 PO (10:18)
[2016-10-24] MEDS ORDERED: CYCL1TAB29 PO (10:18)
[2016-10-24] MEDS ORDERED: METO-309 PO (10:18)
== END 2016-10-14 13:26 | DRG 957 ==
LOC: NEPI 00:19 → EDBD 01:58 → NEDA 01:58 → N03A 03:50 → N06B 10-06 15:43
PROVIDERS: ADMIT Surgery Trauma Surgery; ATTEND Surgery Trauma Surgery
PROC: 5A1955Z Respiratory Ventilation, Greater than 96 Consecutive Hours (ICD-10-PCS; 2016-09-29)
PROC: 0DQ60ZZ Repair Stomach, Open Approach (ICD-10-PCS; 2016-09-29)
PROC: 02VW3DZ Restriction of Thoracic Aorta, Descending with Intraluminal Device, Percutaneous Approach (ICD-10-PCS; 2016-09-29)
PROC: 0W9B30Z Drainage of Left Pleural Cavity with Drainage Device, Percutaneous Approach (ICD-10-PCS; 2016-09-29)
PROC: 0BH17EZ Insertion of Endotracheal Airway into Trachea, Via Natural or Artificial Opening (ICD-10-PCS; 2016-09-29)
PROC: 06HM33Z Insertion of Infusion Device into Right Femoral Vein, Percutaneous Approach (ICD-10-PCS; 2016-09-29)
PROC: 0HQ0XZZ Repair Scalp Skin, External Approach (ICD-10-PCS; 2016-09-29)
PROC: 30233N1 Transfusion of Nonautologous Red Blood Cells into Peripheral Vein, Percutaneous Approach (ICD-10-PCS; 2016-09-29)
PROC: 30233L1 Transfusion of Nonautologous Fresh Plasma into Peripheral Vein, Percutaneous Approach (ICD-10-PCS; 2016-09-29)
PROC: 30233K1 Transfusion of Nonautologous Frozen Plasma into Peripheral Vein, Percutaneous Approach (ICD-10-PCS; 2016-09-29)
PROC: 30233R1 Transfusion of Nonautologous Platelets into Peripheral Vein, Percutaneous Approach (ICD-10-PCS; 2016-09-29)
PROC: 0FQ00ZZ Repair Liver, Open Approach (ICD-10-PCS; principal; 2016-09-29 00:53)
PROC: 0WJG0ZZ Inspection of Peritoneal Cavity, Open Approach (ICD-10-PCS; 2016-09-30)
PROC: 3E1M38Z Irrigation of Peritoneal Cavity using Irrigating Substance, Percutaneous Approach (ICD-10-PCS; 2016-09-30)
PROC: 06PYX3Z Removal of Infusion Device from Lower Vein, External Approach (ICD-10-PCS; 2016-09-30)
PROC: 02HV33Z Insertion of Infusion Device into Superior Vena Cava, Percutaneous Approach (ICD-10-PCS; 2016-10-02)
PROC: 0PSG04Z Reposition Left Humeral Shaft with Internal Fixation Device, Open Approach (ICD-10-PCS; 2016-10-04)
PROC: 0PSL04Z Reposition Left Ulna with Internal Fixation Device, Open Approach (ICD-10-PCS; 2016-10-04)
PROC: 0RSMXZZ Reposition Left Elbow Joint, External Approach (ICD-10-PCS; 2016-10-04)
PROC: 0W9930Z Drainage of Right Pleural Cavity with Drainage Device, Percutaneous Approach (ICD-10-PCS; 2016-10-04)
DX: S36.113A Laceration of liver, unspecified degree, initial encounter (principal); T79.4XXA Traumatic shock, initial encounter; S27.2XXA Traumatic hemopneumothorax, initial encounter; S25.02 Major laceration of thoracic aorta; S32.592A Other specified fracture of left pubis, initial encounter for closed fracture; J96.91 Respiratory failure, unspecified with hypoxia; S36.892A Contusion of other intra-abdominal organs, initial encounter; J90 Pleural effusion, not elsewhere classified; Z99.11 Dependence on respirator [ventilator] status; S27.321A Contusion of lung, unilateral, initial encounter; S42.302A Unspecified fracture of shaft of humerus, left arm, initial encounter for closed fracture; S32.302A Unspecified fracture of left ilium, initial encounter for closed fracture; S32.10XA Unspecified fracture of sacrum, initial encounter for closed fracture; S36.33XA Laceration of stomach, initial encounter; S52.202A Unspecified fracture of shaft of left ulna, initial encounter for closed fracture; S01.01XA Laceration without foreign body of scalp, initial encounter; M25.462 Effusion, left knee; S06.0X0A Concussion without loss of consciousness, initial encounter; I10 Essential (primary) hypertension; V23.4XXA Motorcycle driver injured in collision with car, pick-up truck or van in traffic accident, initial encounter
CPT/HCPCS: 29125; 31500; 32551; 33880; 36200; 36430; 36555; 36569; 36600; 70450; 70551; 71010; 71250; 71275; 72125; 72170; 72192; 73060; 73090; 73590; 73620; 73700; 74000; 74176; 74177; 75605; 75956; 76000; 76937; 80048; 80053; 80307; 81001; 82150; 82435; 82565; 82805; 82945; 82947; 83615; 83735; 83986; 84100; 84132; 84155; 84157; 84295; 84520; 85007; 85025; 85027; 85610; 85730; 86850; 86900; 86901; 86920; 86927; 86965; 87015; 87070; 87086; 87102; 87205; 87206; 87641; 89051; 90471; 90715; 93318; 94002; 94003; 94150; 94640; 94664; 94667; 94668; 96365; 99291; A0431-QM-SH; A0436-QM-SH; C1713; C1725; C1751; C1760; C1769; C1887; C1894; C9113; G0390; J0610; J0690; J1580; J1642; J1650; J2250; J2270; J2370; J2405; J2543; J2720; J3010; J3370; J3475; J3480; J7030; J7070; J7120; L0150; P9016; P9017; P9035; P9045; Q9958; Q9967